=== PATIENT | female | born 1955 | race American Indian/Alaskan Native ===

== ENCOUNTER 2020-11-23 14:36 | Observation (INO) | payer MEDICARE ==
--- NOTE | 2020-11-23 16:11 | Event Note ---
ED Screening Note ED Screening Note: Patient is a 65-year-old female brought in by her daughter with complaints of a fall that occurred earlier today The daughter states that her father witnessed the fall and states that she had a syncopal episode She is complaining of right hip pain, right rib pain, low back pain The daughter states that she had a fall 2 weeks ago and was in another emergency department She states that beginning approximately a week ago she began to have auditory and visual hallucinations This initial assessment/diagnostic orders/clinical plan/treatment(s) is/are subject to change based on patients health status, clinical progression and re- assessment by fellow clinical providers in the ED. Further treatment and workup at subsequent clinical providers discretion. Patient/guardian urged not to elope from the ED as their condition may be serious if not clinically assessed and managed. Initial orders include: Labs, UA, EKG, CT, x-ray
--- NOTE | 2020-11-23 16:53 | XRay Report ---
RIGHT HIP AND PELVIS 2 VIEWS INDICATION: fall, right hip pain. COMPARISON: No relevant prior imaging study available. FINDINGS: No acute, displaced fracture or dislocation is seen. No significant degenerative changes at the hips. There is mild degenerative change at the left SI joint and at the pubic symphysis. IMPRESSION: 1. No acute findings. Signer Name: Harsh Michelle MD Signed: 11/23/2020 4:49 PM Workstation Name: [id number]
--- NOTE | 2020-11-23 17:00 | XRay Report ---
RIGHT RIBS 3 VIEWS INDICATION: Right rib pain after fall. COMPARISON: None available. FINDINGS: RIBS: No acute, displaced fracture or other acute abnormality. CHEST: No acute findings. No pneumothorax. ADDITIONAL FINDINGS: A catheter of uncertain significance is seen along the right upper quadrant. IMPRESSION: 1. No acute abnormality of the right ribs. Signer Name: Perez La MD Signed: 11/23/2020 4:56 PM Workstation Name: [id number]
[2020-11-23 17:09] LABS: Basophils % (Auto) 0.6 % (0.0-1.8); Eosinophils % (Auto) 0.2 % (0.0-4.3); Hematocrit 41.1 % (30.3-42.9); Hemoglobin 13.7 gm/dl (10.1-14.3); Lymphocytes # (Auto) 1.1 K/mm3 (1.2-5.4); Lymphocytes % (Auto) 26.4 % (13.4-35.0); Mean Corpuscular HGB Conc 33 % (30-34); Mean Corpuscular Volume 99 fl (79-97); Monocytes # (Auto) 0.3 K/mm3 (0.0-0.8); Monocytes % (Auto) 8.4 % (0.0-7.3); Platelet Count 232 K/mm3 (140-440); Red Blood Count 4.14 M/mm3 (3.65-5.03); Red Cell Distribution Width 13.4 % (13.2-15.2)
--- NOTE | 2020-11-23 17:28 | Cat Scan Report ---
NONENHANCED CT SCAN OF THE HEAD: INDICATION / CLINICAL INFORMATION: 65 years Female; syncope, visual/auditory hallucinations. TECHNIQUE: Routine CT head without contrast. All CT scans at this location are performed using CT dos e reduction for ALARA by means of automated exposure control. COMPARISON: CT scan from 01/29/2014 FINDINGS: BRAIN / INTRACRANIAL CONTENTS: No acute hemorrhage, mass effect, midline shift, hydrocephalus, or acu te, large territorial infarct. No chronic infarct or focal atrophy. Normal brain volume and ventricul ar/sulcal size for age. No significant white matter abnormality. CRANIOCERVICAL JUNCTION: No significant abnormality. ORBITS: No significant abnormality of visualized orbits. SINUSES / MASTOIDS: No significant abnormality of the visualized paranasal sinuses or mastoid air lauren ls. ADDITIONAL FINDINGS: None. IMPRESSION: No acute focal parenchymal lesion Signer Name: Ivelisse Peters MD Signed: 11/23/2020 5:23 PM Workstation Name: [id number]
[2020-11-23 17:34] LABS: Alanine Aminotransferase 12 units/L (7-56); Albumin 3.9 g/dL (3.9-5); BUN/Creatinine Ratio 16; Blood Urea Nitrogen 19 mg/dL (7-17); Calcium 8.8 mg/dL (8.4-10.2); Hemolysis Index 22
--- NOTE | 2020-11-23 17:51 | Cat Scan Report ---
CT lumbar spine wo con INDICATION / CLINICAL INFORMATION: 65 years Female; syncope, low back pain, hx of LP shunt. TECHNIQUE: Axial CT images of the lumbar spine were obtained. Sagittal and coronal reformatted images were prod uced. All CT scans at this location are performed using CT dose reduction for ALARA by means of autom ated exposure control. COMPARISON: None available. FINDINGS: POST-SURGICAL CHANGES: None. ALIGNMENT: No significant abnormality. VERTEBRAE: Minimally displaced transverse process fracture seen on the right at L2 and L4. Transverse process fracture seen on the right at L3 as well, with approximately 5 mm of displacement noted. There is mild loss of height anteriorly at L2, most likely on a chronic basis. Vertebral body heights are otherwise fairly well-maintained throughout. Diffuse osteopenia noted. Mild, multilevel facet hypertrophy is seen. INTERVERTEBRAL DISCS: Disc space narrowing and vacuum phenomenon seen at L4-5. Mild narrowing seen at L2-3 as well. At L2-3, there is moderate disc bulge with a broad-based posterocentral disc extrusion-disc material extends to the suprapedicular level of L3. Findings result in mild canal narrowing with some degree o f lateral recess narrowing bilaterally which may affect the L3 nerves. Mild foraminal narrowing seen bilaterally. At L3-4, there is mild to moderate disc bulge. This combined with ligamentum flavum hypertrophy resul ts in moderate canal narrowing and some degree of lateral recess narrowing, which may affect the L4 n erves. Mild foraminal narrowing noted bilaterally. L4-5, there is mild to moderate disc bulge and mild facet hypertrophy. Mild canal and lateral recess narrowing noted which may affect L5 nerves. At L5-S1, there is a left paracentral disc protrusion which is broad-based. No significant sequela. M oderate foraminal narrowing is seen on the right with encroachment upon the right L5 nerve. No imping ement. PARASPINAL SOFT TISSUES: No significant abnormality. ADDITIONAL FINDINGS: Tubing is seen in the subcutaneous soft tissues of the back, rightward of midlin e-please clinically correlate. Postoperative small bowel clips suggested. Please clinically correlate. IMPRESSION: 1. Posttraumatic changes as described above. 2. Degenerative changes of the lumbar spine identified as described above. Signer Name: Munir Sweet MD, III Signed: 11/23/2020 5:47 PM Workstation Name: [id number]
[2020-11-23 22:49] LABS: Amphetamine Screen,Urine PRESUMPTIVE NEGATIVE; Benzodiazepines Screen,Urine PRESUMPTIVE NEGATIVE; Cannabinoid Screen,Urine PRESUMPTIVE NEGATIVE; Cocaine Screen,Urine PRESUMPTIVE NEGATIVE; Methadone Screen,Urine PRESUMPTIVE NEGATIVE; Opiate Screen,Urine PRESUMPTIVE POSITIVE
--- NOTE | 2020-11-23 22:52 | Emergency Department Report ---
HPI - General Chief Complaint: Head Injury Time Seen by Provider: 11/23/20 16:06 - HPI HPI: This is a 65-year-old female presents to the emergency department with complaint of a fall this afternoon that caused subsequent pain to the low back, pelvis and bilateral hips. The patient's is currently at bedside and says that he woke up and found her on the floor. She appeared confused and had obviously fallen off of the couch. Unknown loss of consciousness. He also says that the patient has been experiencing both auditory and visual hallucinations and paranoia over the past 3 to 4 days. This has never happened previously and she does not have any psychiatric history. Patient appears to have some recent falls as he went to [facility] late last week for a different fall. says that there was no significant injury found other than "they said that she bruised her spine." The patient has a past medical history of asthma, arthritis, COPD, diabetes, hypertension, hypothyroidism, pseudotumor cerebri. The patient is oriented, AAO x3. She says that she has visual hallucinations when she thinks that there are people in the room and sees "shadows." She has difficulty explaining the auditory hallucinations. During my examination the patient told me "just let him () answer the phone because it keeps ringin g." There was no phone ringing at this time and the acknowledges that this is an example of what has been going on. ED Past Medical Hx - Past Medical History Hx Hypertension: Yes Hx Diabetes: Yes Hx Arthritis: Yes Hx Asthma: Yes Hx COPD: Yes Additional medical history: Osteoporosis-pt taking calcium & vitamin d supplement and Boniva. Hyperthyroidism, pseudotumor cerebrii - Surgical History Hx Appendectomy: Yes Hx Breast Surgery: Yes (Reduction) Additional Surgical History: Tonsillectomy, thyoidectomy, x 2, gastric bypass, skin removed on abdomen after gastric bypass, hysterectomy - Social History Smoking Status: Never Smoker Substance Use Type: None - Medications Home Medications: Home Medications Medication Instructions Recorded Confirmed Last Taken Type Cyclobenzaprine [Flexeril] 10 mg PO TID PRN #20 tablet 01/30/14 Unknown Rx oxyCODONE /ACETAMINOPHEN [Percocet 1 tab PO Q6HR PRN #20 tablet 01/30/14 Unknown Rx 5/325 mg] ED Review of Systems ROS: Stated complaint: SPINE INJURY, SEEING AND HEARING THINGS Other details as noted in HPI Comment: All other systems reviewed and negative Constitutional: denies: chills, fever Eyes: denies: eye pain, vision change ENT: denies: ear pain, throat pain Respiratory: denies: cough, shortness of breath Cardiovascular: denies: chest pain, palpitations Gastrointestinal: denies: abdominal pain, vomiting Genitourinary: denies: dysuria, discharge Musculoskeletal: back pain, arthralgia, myalgia Skin: denies: rash, lesions Neurological: other (dizziness). denies: headache Psychiatric: auditory hallucinations, visual hallucinations Physical Exam - Physical Exam Vital Signs: Vital Signs 11/23/20 11/23/20 11/23/20 15:04 18:10 21:45 Temperature 98.5 F 98.6 F 97.8 F Pulse Rate 63 67 74 Respiratory 20 19 Rate Blood Pressure 165/71 Blood Pressure 119/84 134/74 [Left] O2 Sat by Pulse 98 100 16 L Oximetry Physical Exam: GENERAL: The patient is well-developed well-nourished. HENT: Normocephalic. Atraumatic. Patient has moist mucous membranes. EYES: Extraocular motions are intact. No nystagmus. NECK: Supple. Trachea is midline. CHEST/LUNGS: Clear to auscultation. There is no respiratory distress noted. HEART/CARDIOVASCULAR: Regular. There is no tachycardia. There is no murmur. ABDOMEN: Abdomen is soft, nontender. Patient has normal bowel sounds. SKIN: Skin is warm and dry. NEURO: The patient is awake, alert, and cooperative. Patient is able to answer orientation questions but does display some mild confusion. Cranial nerves II through XII grossly intact. No facial asymmetry. No pronator drift or dysmetria. MUSCULOSKELETAL: There is no tenderness or deformity. There is no limitation range of motion. PSYCH: The patient does appear to be exhibiting some paranoia and delusions. BACK: There is both midline and bilateral lumbar tenderness to palpation. ED Course Vital Signs 11/23/20 11/23/20 11/23/20 15:04 18:10 21:45 Temperature 98.5 F 98.6 F 97.8 F Pulse Rate 63 67 74 Respiratory 20 19 Rate Blood Pressure 165/71 Blood Pressure 119/84 134/74 [Left] O2 Sat by Pulse 98 100 16 L Oximetry ED Medical Decision Making - Lab Data Result diagrams: 11/23/20 16:57 11/23/20 16:57 Lab Results 11/23/20 11/23/20 11/23/20 Range/Units 16:57 16:57 22:14 WBC 4.0 L (4.5-11.0) K/mm3 RBC 4.14 (3.65-5.03) M/mm3 Hgb 13.7 (10.1-14.3) gm/dl Hct 41.1 (30.3-42.9) % MCV 99 H (79-97) fl MCH 33 H (28-32) pg MCHC 33 (30-34) % RDW 13.4 (13.2-15.2) % Plt Count 232 (140-440) K/mm3 Lymph % (Auto) 26.4 (13.4-35.0) % [place] % (Auto) 8.4 H (0.0-7.3) % Eos % (Auto) 0.2 (0.0-4.3) % Baso % (Auto) 0.6 (0.0-1.8) % Lymph # (Auto) 1.1 L (1.2-5.4) K/mm3 [place] # (Auto) 0.3 (0.0-0.8) K/mm3 Eos # (Auto) 0.0 (0.0-0.4) K/mm3 Baso # (Auto) 0.0 (0.0-0.1) K/mm3 Seg Neutrophils % 64.4 (40.0-70.0) % Seg Neutrophils # 2.6 (1.8-7.7) K/mm3 Sodium 137 (137-145) mmol/L Potassium 4.0 (3.6-5.0) mmol/L Chloride 102.7 (98-107) mmol/L Carbon Dioxide 24 (22-30) mmol/L Anion Gap 14 mmol/L BUN 19 H (7-17) mg/dL Creatinine 1.2 (0.6-1.2) mg/dL Estimated GFR 55 ml/min BUN/Creatinine Ratio 16 % Glucose 117 H (65-100) mg/dL Calcium 8.8 (8.4-10.2) mg/dL Magnesium 2.10 (1.7-2.3) mg/dL Total Bilirubin 0.30 (0.1-1.2) mg/dL AST 19 (5-40) units/L ALT 12 (7-56) units/L Alkaline Phosphatase 67 (35-129) units/L Ammonia 13.0 L (25-60) umol/L Total Creatine Kinase 132 (30-135) units/L Troponin T < 0.010 (0.00-0.029) ng/mL Total Protein 6.8 (6.3-8.2) g/dL Albumin 3.9 (3.9-5) g/dL Albumin/Globulin Ratio 1.3 % TSH (0.270-4.200) mlU/mL Urine Color (Yellow) Urine Turbidity (Clear) Urine pH (5.0-7.0) Ur Specific [place] (1.003-1.030) Urine Protein (Negative) mg/dL Urine Glucose (UA) (Negative) mg/dL Urine Ketones (Negative) mg/dL Urine Blood (Negative) Urine Nitrite (Negative) Urine Bilirubin (Negative) Urine Urobilinogen (<2.0) mg/dL Ur Leukocyte Esterase (Negative) Urine WBC (Auto) (0.0-6.0) /HPF Urine RBC (Auto) (0.0-6.0) /HPF U Epithel Cells (Auto) (0-13.0) /HPF Urine Mucus /HPF Urine Opiates Screen Urine Methadone Screen Ur Barbiturates Screen Ur Phencyclidine Scrn Ur Amphetamines Screen U Benzodiazepines Scrn Urine Cocaine Screen U Marijuana (THC) Screen Drugs of Abuse Note Plasma/Serum Alcohol (0-0.07) % 11/23/20 11/23/20 11/23/20 Range/Units 22:14 22:14 22:21 WBC (4.5-11.0) K/mm3 RBC (3.65-5.03) M/mm3 Hgb (10.1-14.3) gm/dl Hct (30.3-42.9) % MCV (79-97) fl MCH (28-32) pg MCHC (30-34) % RDW (13.2-15.2) % Plt Count (140-440) K/mm3 Lymph % (Auto) (13.4-35.0) % [place] % (Auto) (0.0-7.3) % Eos % (Auto) (0.0-4.3) % Baso % (Auto) (0.0-1.8) % Lymph # (Auto) (1.2-5.4) K/mm3 [place] # (Auto) (0.0-0.8) K/mm3 Eos # (Auto) (0.0-0.4) K/mm3 Baso # (Auto) (0.0-0.1) K/mm3 Seg Neutrophils % (40.0-70.0) % Seg Neutrophils # (1.8-7.7) K/mm3 Sodium (137-145) mmol/L Potassium (3.6-5.0) mmol/L Chloride (98-107) mmol/L Carbon Dioxide (22-30) mmol/L Anion Gap mmol/L BUN (7-17) mg/dL Creatinine (0.6-1.2) mg/dL Estimated GFR ml/min BUN/Creatinine Ratio % Glucose (65-100) mg/dL Calcium (8.4-10.2) mg/dL Magnesium (1.7-2.3) mg/dL Total Bilirubin (0.1-1.2) mg/dL AST (5-40) units/L ALT (7-56) units/L Alkaline Phosphatase (35-129) units/L Ammonia (25-60) umol/L Total Creatine Kinase (30-135) units/L Troponin T (0.00-0.029) ng/mL Total Protein (6.3-8.2) g/dL Albumin (3.9-5) g/dL Albumin/Globulin Ratio % TSH 0.355 (0.270-4.200) mlU/mL Urine Color Yellow (Yellow) Urine Turbidity Slightly-cloudy (Clear) Urine pH 6.0 (5.0-7.0) Ur Specific [place] 1.021 (1.003-1.030) Urine Protein 30 mg/dl (Negative) mg/dL Urine Glucose (UA) Neg (Negative) mg/dL Urine Ketones 20 (Negative) mg/dL Urine Blood Neg (Negative) Urine Nitrite Neg (Negative) Urine Bilirubin Neg (Negative) Urine Urobilinogen 2.0 (<2.0) mg/dL Ur Leukocyte Esterase Tr (Negative) Urine WBC (Auto) 7.0 H (0.0-6.0) /HPF Urine RBC (Auto) 1.0 (0.0-6.0) /HPF U Epithel Cells (Auto) 1.0 (0-13.0) /HPF Urine Mucus Few /HPF Urine Opiates Screen Urine Methadone Screen Ur Barbiturates Screen Ur Phencyclidine Scrn Ur Amphetamines Screen U Benzodiazepines Scrn Urine Cocaine Screen U Marijuana (THC) Screen Drugs of Abuse Note Plasma/Serum Alcohol < 0.01 (0-0.07) % 11/23/20 Range/Units 22:21 WBC (4.5-11.0) K/mm3 RBC (3.65-5.03) M/mm3 Hgb (10.1-14.3) gm/dl Hct (30.3-42.9) % MCV (79-97) fl MCH (28-32) pg MCHC (30-34) % RDW (13.2-15.2) % Plt Count (140-440) K/mm3 Lymph % (Auto) (13.4-35.0) % [place] % (Auto) (0.0-7.3) % Eos % (Auto) (0.0-4.3) % Baso % (Auto) (0.0-1.8) % Lymph # (Auto) (1.2-5.4) K/mm3 [place] # (Auto) (0.0-0.8) K/mm3 Eos # (Auto) (0.0-0.4) K/mm3 Baso # (Auto) (0.0-0.1) K/mm3 Seg Neutrophils % (40.0-70.0) % Seg Neutrophils # (1.8-7.7) K/mm3 Sodium (137-145) mmol/L Potassium (3.6-5.0) mmol/L Chloride (98-107) mmol/L Carbon Dioxide (22-30) mmol/L Anion Gap mmol/L BUN (7-17) mg/dL Creatinine (0.6-1.2) mg/dL Estimated GFR ml/min BUN/Creatinine Ratio % Glucose (65-100) mg/dL Calcium (8.4-10.2) mg/dL Magnesium (1.7-2.3) mg/dL Total Bilirubin (0.1-1.2) mg/dL AST (5-40) units/L ALT (7-56) units/L Alkaline Phosphatase (35-129) units/L Ammonia (25-60) umol/L Total Creatine Kinase (30-135) units/L Troponin T (0.00-0.029) ng/mL Total Protein (6.3-8.2) g/dL Albumin (3.9-5) g/dL Albumin/Globulin Ratio % TSH (0.270-4.200) mlU/mL Urine Color (Yellow) Urine Turbidity (Clear) Urine pH (5.0-7.0) Ur Specific [place] (1.003-1.030) Urine Protein (Negative) mg/dL Urine Glucose (UA) (Negative) mg/dL Urine Ketones (Negative) mg/dL Urine Blood (Negative) Urine Nitrite (Negative) Urine Bilirubin (Negative) Urine Urobilinogen (<2.0) mg/dL Ur Leukocyte Esterase (Negative) Urine WBC (Auto) (0.0-6.0) /HPF Urine RBC (Auto) (0.0-6.0) /HPF U Epithel Cells (Auto) (0-13.0) /HPF Urine Mucus /HPF Urine Opiates Screen Presumptive positive Urine Methadone Screen Presumptive negative Ur Barbiturates Screen Presumptive negative Ur Phencyclidine Scrn Presumptive negative Ur Amphetamines Screen Presumptive negative U Benzodiazepines Scrn Presumptive negative Urine Cocaine Screen Presumptive negative U Marijuana (THC) Screen Presumptive negative Drugs of Abuse Note Disclamer Plasma/Serum Alcohol (0-0.07) % - EKG Data -: EKG Interpreted by Me EKG shows normal: sinus rhythm, axis, intervals, QRS complexes, ST-T waves Rate: normal - EKG Data When compared to previous EKG there are: previous EKG unavailable Interpretation: normal EKG - Radiology Data Radiology results: report reviewed, image reviewed interpreted by me: X-ray of the right hip does not show any fracture, dislocation, or any acute process. Chest x-ray does not show any acute process. There are no pleural effusions, obvious pneumonia and there is no pneumothorax. No significant cardiomegaly. No rib fractures or osseous abnormalities. NONENHANCED CT SCAN OF THE HEAD: INDICATION / CLINICAL INFORMATION: 65 years Female; syncope, visual/auditory hallucinations. TECHNIQUE: Routine CT head without contrast. All CT scans at this location are performed using CT dose reduction for ALARA by means of automated exposure control. COMPARISON: CT scan from 01/29/2014 FINDINGS: BRAIN / INTRACRANIAL CONTENTS: No acute hemorrhage, mass effect, midline shift, hydrocephalus, or acute, large territorial infarct. No chronic infarct or focal atrophy. Normal brain volume and ventricular/sulcal size for age. No significant white matter abnormality. CRANIOCERVICAL JUNCTION: No significant abnormality. ORBITS: No significant abnormality of visualized orbits. SINUSES / MASTOIDS: No significant abnormality of the visualized paranasal sinuses or mastoid air cells. ADDITIONAL FINDINGS: None. IMPRESSION: No acute focal parenchymal lesion CT lumbar spine wo con INDICATION / CLINICAL INFORMATION: 65 years Female; syncope, low back pain, hx of LP shunt. TECHNIQUE: Axial CT images of the lumbar spine were obtained. Sagittal and coronal reformatted images were produced. All CT scans at this location are performed using CT dose reduction for ALARA by means of automated exposure control. COMPARISON: None available. FINDINGS: POST- SURGICAL CHANGES: None. ALIGNMENT: No significant abnormality. VERTEBRAE: Minimally displaced transverse process fracture seen on the right at L2 and L4. Transverse process fracture seen on the right at L3 as well, with approximately 5 mm of displacement noted. There is mild loss of height anteriorly at L2, most likely on a chronic basis. Vertebral body heights are otherwise fairly well- maintained throughout. Diffuse osteopenia noted. Mild, multilevel facet hypertrophy is seen. INTERVERTEBRAL DISCS: Disc space narrowing and vacuum phenomenon seen at L4-5. Mild narrowing seen at L2-3 as well. At L2-3, there is moderate disc bulge with a broad-based posterocentral disc extrusion-disc material extends to the suprapedicular level of L3. Findings result in mild canal narrowing with some degree of lateral recess narrowing bilaterally which may affect the L3 nerves. Mild foraminal narrowing seen bilaterally. At L3-4, there is mild to moderate disc bulge. This combined with ligamentum flavum hypertrophy results in moderate canal narrowing and some degree of lateral recess narrowing, which may affect the L4 nerves. Mild foraminal narrowing noted bilaterally. L4-5, there is mild to moderate disc bulge and mild facet hypertrophy. Mild canal and lateral recess narrowing noted which may affect L5 nerves. At L5-S1, there is a left paracentral disc protrusion which is broad- based. No significant sequela. Moderate foraminal narrowing is seen on the right with encroachment upon the right L5 nerve. No impingement. PARASPINAL SOFT TISSUES: No significant abnormality. ADDITIONAL FINDINGS: Tubing is seen in the subcutaneous soft tissues of the back, rightward of midline-please clinically correlate. Postoperative small bowel clips suggested. Please clinically correlate. IMPRESSION: 1. Posttraumatic changes as described above. 2. Degenerative changes of the lumbar spine identified as described above. - Medical Decision Making This patient presents to the emergency department with 2 issues. First, the patient had a fall today in which she was seen on the ground by her and neither he nor she knew how she got from the couch to the floor. She had a complaint of some low back pain, right hip pain and a headache. The patient had a CT scan of the head without contrast that did not show any hemorrhage, large vessel occlusion, hydrocephalus, edema, or any other acute process. This is particularly important with the patient's history of pseudotumor cerebri. She had a CT scan of the lumbar spine that shows transverse process fractures on the right side L2-L4. Chest x-ray did not show any pneumonia, pleural effusions, rib fracture, or any acute process. X-ray of the right hip did not show any fracture, dislocation, or any acute process. On examination the patient does not have any focal or motor deficits and cranial nerves are intact. The patient also presents with the complaint of auditory and visual hallucinations over the past 3 to 4 days. Beyond that, the patient also dis plays some paranoia and delusions. I witnessed the patient suddenly demanding that her be able to answer the phone because it is consistently ringing. However, we were in room 5 and there was no phone going off, any sudden beeping or any other reason for the patient to blurt that out. Patient's says that this was an example of her recent confusion and hallucinations. Patient's labs are mostly unremarkable except for a very mild urinary tract infection. She will be started on Macrobid. The patient does not have any previous psychiatric history. With this sudden mental status change, as well as the multiple recurrent falls, the patient will be admitted to the hospital for further evaluation and treatment and was accepted for admission by the hospitalist, Dr. Rubio. Critical Care Time: No Critical care attestation.: If time is entered above; I have spent that time in minutes in the direct care of this critically ill patient, excluding procedure time. ED Disposition Clinical Impression: Recurrent falls, Multiple transverse process fractures, Hallucinations, Mild renal insufficiency UTI (urinary tract infection) Qualifiers: Urinary tract infection type: acute cystitis Hematuria presence: without hematuria Qualified Code(s): N30.00 - Acute cystitis without hematuria Disposition: OP ADMIT IP TO THIS HOSP Is pt being admited?: Yes Condition: Serious Referrals: BETTIE WOOD MD [Primary Care Provider] - 3-5 Days Time of Disposition: 00:07
[2020-11-23 23:10] LABS: Bilirubin,Urine NEG (Negative); Blood,Urine NEG (Negative); Color,Urine Yellow (Yellow); Mucus,Urine FEW /HPF
[2020-11-23] MEDS ORDERED: NITROFURANTOIN MONOHYD/M-CRYST 100 MG CAP PO ONE (23:20)
[2020-11-24] MEDS ORDERED: ACETAMINOPHEN 325 MG TAB PO PRN (00:20)
[2020-11-24] MEDS ORDERED: DEXTROSE 50% IN WATER (25GM) 50 ML SYRINGE IV PRN (00:20)
[2020-11-24] MEDS ORDERED: MORPHINE 2 MG/1 ML INJ IV PRN (00:20)
[2020-11-24] MEDS ORDERED: MAGNESIUM HYDROXIDE (MOM) ORAL LIQD UDC PO PRN (00:20)
[2020-11-24] MEDS ORDERED: ONDANSETRON 4 MG/2 ML INJ IV PRN (00:20)
--- NOTE | 2020-11-24 00:29 | History and Physical Report ---
History of Present Illness Date of examination: 11/24/20 Date of admission: 11/24/2020 Chief complaint: Recurrent Falls History of present illness: 65-year-old female presenting in the emergency room today with complaints of recurrent fall. She indicates she has had multiple falls today and has been having some low back pain and bilateral hip pain. Patient has significant past medical history of arthritis, asthma, diabetes mellitus, hypertension, hypothyroidism, COPD, pseudotumor cerebri. Family indicates that patient has been confused and has had auditory, visual hallucination and paranoia over the past 3 to 4 days. Patient denies any psychiatric illness. Patient has also had a recent fall for which she will was evaluated at [facility] about a week ago. She denies any significant injury at that time. There has been no history of chest pain or shortness of breath, no fever or chills, no headache, no neck pain, no nausea vomiting and no abdominal pain. Patient denies any hematuria or dysuria. Work-up in the emergency room today reveals Transverse process fracture seen on the right at L3 level as well with approximately 5 mm of displacement noted. All other work-up including CT scan of the head and chest x-ray have been unremarkable. Patient is being admitted with recurrent fall and hallucinations. Past History Past Medical History: arthritis, COPD, diabetes, hypertension, other (Ost eoporosis, hypothyroidism pseudotumor cerebri,) Past Surgical History: appendectomy, (X2), thyroidectomy, Other (Tonsillectomy, gastric bypass, breast reduction) Social history: no significant social history Family history: no significant family history Medications and Allergies Allergies Allergy/AdvReac Type Severity Reaction Status Date / Time aspirin Allergy Shortness Verified 11/23/20 15:06 of Breath meperidine HCl [From Demerol] Allergy Itching Verified 11/23/20 15:06 NSAIDS (Non-Steroidal Allergy Shortness Verified 11/23/20 15:06 Anti-Inflamma of Breath Cheese Allergy Shortness Uncoded 11/23/20 15:06 of Breath Home Medications Medication Instructions Recorded Confirmed Last Taken Type Cyclobenzaprine [Flexeril] 10 mg PO TID PRN #20 tablet 01/30/14 Unknown Rx oxyCODONE /ACETAMINOPHEN [Percocet 1 tab PO Q6HR PRN #20 tablet 01/30/14 Unknown Rx 5/325 mg] Active Meds: Active Medications Acetaminophen (Acetaminophen 325 Mg Tab) 650 mg PO Q4H PRN PRN Reason: Pain MILD(1-3)/Fever >100.5/MCLEOD Dextrose (Dextrose 50% In Water (25gm) 50 Ml Syringe) 50 ml IV Q30MIN PRN; Protocol PRN Reason: Hypoglycemia Sodium Chloride (Nacl 0.9% 1000 Ml) 1,000 mls @ 75 mls/hr IV DIRECT NARDA Insulin Human Lispro (Insulin Lispro 100 Unit/Ml) 0 unit SUB-Q ACHS NARDA; Protocol Magnesium Hydroxide (Magnesium Hydroxide (Mom) Oral Liqd Udc) 30 ml PO Q4H PRN PRN Reason: Constipation Morphine Sulfate (Morphine 2 Mg/1 Ml Inj) 2 mg IV Q4H PRN PRN Reason: Pain, Moderate (4-6) Ondansetron HCl (Ondansetron 4 Mg/2 Ml Inj) 4 mg IV Q8H PRN PRN Reason: Nausea And Vomiting Sodium Chloride (Sodium Chloride 0.9% 10 Ml Flush Syringe) 10 ml IV BID NARDA Sodium Chloride (Sodium Chloride 0.9% 10 Ml Flush Syringe) 10 ml IV PRN PRN PRN Reason: LINE FLUSH Review of Systems Constitutional: no fever, no chills, no malaise, no lethargy Cardiovascular: no chest pain, no palpitations Respiratory: no cough, no shortness of breath Gastrointestinal: no abdominal pain, no nausea, no vomiting, no diarrhea Genitourinary Female: no pelvic pain, no flank pain, no hematuria Musculoskeletal: no neck pain, no low back pain Integumentary: no rash, no pruritis Neurological: no headaches, no confusion Psychiatric: no anxiety, no depression Endocrine: no polyphagia, no polydipsia, no polyuria, no nocturia Exam - Constitutional Vitals: Temp Pulse Resp BP Pulse Ox 97.8 F 65 17 149/71 100 11/23/20 21:45 11/24/20 00:00 11/24/20 00:00 11/24/20 00:00 11/24/20 00:00 General appearance: Present: no acute distress, well-nourished - EENT Eyes: Present: PERRL, EOM intact. Absent: scleral icterus ENT: hearing intact, clear oral mucosa, dentition normal - Neck Neck: Present: supple, normal ROM - Respiratory Respiratory effort: normal Respiratory: bilateral: CTA - Cardiovascular Rhythm: regular Heart Sounds: Present: S1 & S2 - Extremities Extremities: no ischemia, pulses intact, pulses symmetrical, No edema, normal temperature, normal color, Full ROM Peripheral Pulses: within normal limits - Abdominal General gastrointestinal: Present: soft, non-tender, non-distended, normal bowel sounds. Absent: mass - Integumentary Integumentary: Present: clear, warm, dry. Absent: rash - Musculoskeletal Musculoskeletal: strength equal bilaterally - Psychiatric Psychiatric: appropriate mood/affect, intact judgment & insight, memory intact, cooperative - Neurologic Neurologic: CNII-XII intact, no focal deficits, moves all extremities HEART Score - HEART Score Troponin: Troponin T < 0.010 ng/mL (0.00-0.029) 11/23/20 16:57 Results - Labs CBC & Chem 7: 11/23/20 16:57 11/23/20 16:57 Labs: Abnormal lab results 11/23/20 11/23/20 11/23/20 Range/Units 16:57 16:57 22:14 WBC 4.0 L (4.5-11.0) K/mm3 MCV 99 H (79-97) fl MCH 33 H (28-32) pg [place] % (Auto) 8.4 H (0.0-7.3) % Lymph # (Auto) 1.1 L (1.2-5.4) K/mm3 BUN 19 H (7-17) mg/dL Glucose 117 H (65-100) mg/dL Ammonia 13.0 L (25-60) umol/L Urine WBC (Auto) (0.0-6.0) /HPF 11/23/20 Range/Units 22:21 WBC (4.5-11.0) K/mm3 MCV (79-97) fl MCH (28-32) pg [place] % (Auto) (0.0-7.3) % Lymph # (Auto) (1.2-5.4) K/mm3 BUN (7-17) mg/dL Glucose (65-100) mg/dL Ammonia (25-60) umol/L Urine WBC (Auto) 7.0 H (0.0-6.0) /HPF Assessment and Plan - Patient Problems (1) Recurrent falls Current Visit: Yes Status: Acute Plan to address problem: Etiology is unclear. We will schedule physical therapy consult for evaluation. (2) Hallucinations Current Visit: Yes Status: Acute Plan to address problem: Etiology unclear. Patient has no history of mental illness. We will place consult to mental health for evaluation. (3) Mild renal insufficiency Current Visit: Yes Status: Acute Plan to address problem: Patient will be placed on IV fluid. Will monitor BUN and creatinine. (4) DVT prophylaxis Current Visit: Yes Status: Acute Plan to address problem: Patient placed on subcutaneous heparin. (5) Full code status Current Visit: Yes Status: Acute Plan to address problem: Patient is a full code.
[2020-11-24] MEDS ORDERED: SODIUM CHLORIDE 0.9% 1000 ML 1,000 ML IV SCH (00:30)
--- NOTE | 2020-11-24 08:25 | Event Note ---
Date: 11/24/20 Patient seen and examined, resting comfortable, she could not articulate clearly the mechanism of fall. Will start on empiric abx for mild UTI noted, also will obtain ANITHA eval, PT/OT and outpatient event monitoring with cardiology.
[2020-11-24] MEDS: INSULIN LISPRO 100 UNIT/ML SUB-Q SCH ×3 (08:42→17:18)
[2020-11-24] MEDS: HEPARIN 5,000 UNIT/1 ML VIAL SUB-Q SCH ×3 (09:14→21:49)
--- NOTE | 2020-11-24 09:16 | Consultation ---
History of Present Illness Consult date: 11/24/20 Reason for Consult: recurrent fall and hallucination History of present illness: Recurrent Falls History of present illness: 65-year-old female presenting in the emergency room today with complaints of recurrent fall. She indicates she has had multiple falls today and has been having some low back pain and bilateral hip pain. Patient has significant past medical history of arthritis, asthma, diabetes mellitus, hypertension, hypothyroidism, COPD, pseudotumor cerebri s/p shunt placement 20 years ago . Family indicates that patient has been confused and has had auditory, visual hallucination and paranoia over the past 3 to 4 days. Patient denies any psychiatric illness. Patient has also had a recent fall for which she will was evaluated at [facility] about a week ago. She denies any significant injury at that time. According to pt. she had a mom with hx of schizophrenia and is on medication she is evaluated today by psychiatry started on welbutrin 150 mg bid and Abilify According to her for years she is on Cymbalta 60 mg bid According to her fall happen while she is on commod denied dizziness and after LOC she will be confused disoriented had episodes of tongue bitting as well as a t time associted Incontince , she denied Hx of seizure she is on Morphine 30 mg bid X 20 years started after her shunt -- she used to get sever headache now haedache is occasional , have not seen NS in over 20 years. Work-up in the emergency room today reveals Transverse process fracture seen on the right at L3 level as well with approximately 5 mm of displacement noted. All other work-up including CT scan of the head and chest x-ray have been unremarkable. Patient is being admitted with recurrent fall and hallucinations. Past History Past Medical History: arthritis, COPD, diabetes, hypertension, other (Osteoporosis, hypothyroidism pseudotumor cerebri,) Past Surgical History: appendectomy, (X2), thyroidectomy, Other (Tonsillectomy, gastric bypass, breast reduction) shunt placement Social history: no significant social history Family history: no significant family history Review of Systems Constitutional: no fever, no chills, no malaise, no lethargy Cardiovascular: no chest pain, no palpitations Respiratory: no cough, no shortness of breath Gastrointestinal: no abdominal pain, no nausea, no vomiting, no diarrhea Genitourinary Female: no pelvic pain, no flank pain, no hematuria Musculoskeletal: no neck pain, no low back pain Integumentary: no rash, no pruritis Neurological: no headaches, no confusion Psychiatric: no anxiety, no depression Endocrine: no polyphagia, no polydipsia, no polyuria, no nocturia Past History Past Medical History: arthritis, COPD, diabetes, hypertension, other (Osteoporosis, hypothyroidism pseudotumor cerebri,) Past Surgical History: appendectomy, (X2), thyroidectomy, Other (To nsillectomy, gastric bypass, breast reduction) Social history: no significant social history Family history: no significant family history Medications and Allergies Allergies Allergy/AdvReac Type Severity Reaction Status Date / Time aspirin Allergy Shortness Verified 11/23/20 15:06 of Breath meperidine HCl [From Demerol] Allergy Itching Verified 11/23/20 15:06 NSAIDS (Non-Steroidal Allergy Shortness Verified 11/23/20 15:06 Anti-Inflamma of Breath Cheese Allergy Shortness Uncoded 11/23/20 15:06 of Breath Home Medications Medication Instructions Recorded Confirmed Last Taken Type Cyclobenzaprine [Flexeril] 10 mg PO TID PRN #20 tablet 01/30/14 Unknown Rx oxyCODONE /ACETAMINOPHEN [Percocet 1 tab PO Q6HR PRN #20 tablet 01/30/14 Unknown Rx 5/325 mg] Active Meds: Active Medications Acetaminophen (Acetaminophen 325 Mg Tab) 650 mg PO Q4H PRN PRN Reason: Pain MILD(1-3)/Fever >100.5/MCLEOD Dextrose (Dextrose 50% In Water (25gm) 50 Ml Syringe) 50 ml IV Q30MIN PRN; Protocol PRN Reason: Hypoglycemia Heparin Sodium (Porcine) (Heparin 5,000 Unit/1 Ml Vial) 5,000 unit SUB-Q Q8HR NARDA Sodium Chloride (Nacl 0.9% 1000 Ml) 1,000 mls @ 75 mls/hr IV DIRECT NARDA Last Admin: 11/24/20 03:53 Dose: 75 mls/hr Documented by: Insulin Human Lispro (Insulin Lispro 100 Unit/Ml) 0 unit SUB-Q ACHS NARDA; P rotocol Last Admin: 11/24/20 08:42 Dose: Not Given Documented by: Magnesium Hydroxide (Magnesium Hydroxide (Mom) Oral Liqd Udc) 30 ml PO Q4H PRN PRN Reason: Constipation Morphine Sulfate (Morphine 2 Mg/1 Ml Inj) 2 mg IV Q4H PRN PRN Reason: Pain, Moderate (4-6) Ondansetron HCl (Ondansetron 4 Mg/2 Ml Inj) 4 mg IV Q8H PRN PRN Reason: Nausea And Vomiting Sodium Chloride (Sodium Chloride 0.9% 10 Ml Flush Syringe) 10 ml IV BID NARDA Sodium Chloride (Sodium Chloride 0.9% 10 Ml Flush Syringe) 10 ml IV PRN PRN PRN Reason: LINE FLUSH Physical Examination - Vital Signs Vital Signs: Vital Signs Temp Pulse Resp BP Pulse Ox 98.5 F 63 20 165/71 98 11/23/20 15:04 11/23/20 15:04 11/23/20 15:04 11/23/20 15:04 11/23/20 15:04 - Constitutional General appearance: uncomfortable - EENT EENT: Present: PERRL, mucous membranes moist - Respiratory Respiratory: Present: chest non-tender, lungs clear - Cardiovascular Cardiovascular: Present: normal S1, normal S2 Extremities: Present: no peripheral edema bilatateraly - Gastrointestinal Gastrointestinal: Present: normoactive bowel sounds - Integumentary Integumentary: Present: normal - Neurologic Cranial nerve examination: PERRL, EOMI, face symmetric, tongue midline, intact Speech examination: intact Sensorimotor examination: intact Detailed motor examination: grossly full strength in Detailed sensory examination: intact - Psychiatric Psychiatric: Present: depressed Results - Laboratory Findings CBC and BMP: 11/23/20 16:57 11/23/20 16:57 Abnormal Lab Findings: Abnormal Labs 11/23/20 11/23/20 11/23/20 16:57 16:57 22:14 WBC 4.0 L MCV 99 H MCH 33 H [place] % (Auto) 8.4 H Lymph # (Auto) 1.1 L BUN 19 H Glucose 117 H Ammonia 13.0 L Urine WBC (Auto) 11/23/20 22:21 WBC MCV MCH [place] % (Auto) Lymph # (Auto) BUN Glucose Ammonia Urine WBC (Auto) 7.0 H Assessment and Plan (1) Recurrent falls - happen at time in sitting and or standing with no associated aura ,she d escribes tongue bitting at time and or urinarry incontince-- with assocaited confusion after the fall ? seizure can not be excluded -Ct brain is unremarkable -Suggest MRI brain with Qd if possible -EEG -check for orthostatic changes -Cardiac monitoring -Consider STOP welbutrin due to side effect of aggravating seizure. (2) Hallucinations -Patient has no history of mental illness. - Evaluated by psychiatry today (3) Mild renal insufficiency -Patient will be placed on IV fluid. (4) DVT prophylaxis -Patient placed on subcutaneous heparin. (5) Full code status Patient is a full code. Will follow along
--- NOTE | 2020-11-24 10:37 | Consultation ---
History of Present Illness - Reason for Consult Consult date: 11/24/20 Reason for consult: depression - History of Present Psychiatric Illness Per ER Note: This is a 65-year-old female presents to the emergency department with complaint of a fall this afternoon that caused subsequent pain to the low back, pelvis and bilateral hips. The patient's is currently at bedside and says that he woke up and found her on the floor. She appeared confused and had obviously fallen off of the couch. Unknown loss of consciousness. He also says that the patient has been experiencing both auditory and visual hallucinations and paranoia over the past 3 to 4 days. This has never happened previously and she does not have any psychiatric history. Patient appears to have some recent falls as he went to [facility] late last week for a different fall. says that there was no significant injury found other than "they said that she bruised her spine." The patient has a past medical history of asthma, arthritis, COPD, diabetes, hypertension, hypothyroidism, pseudotumor cerebri. The patient is oriented, AAO x3. She says that she has visual hallucinations when she thinks that there are people in the room and sees "shadows." She has difficulty explaining the auditory hallucinations. During my examination the patient told me "just let him () answer the phone because it keeps ringing." There was no phone ringing at this time and the acknowledges that this is an example of what has been going on. During my assessment of 64 y/o Ingris Sebastian, she is lying down. She is visibly upset. She is crying and has her faced covered with her hand. She makes no eye contact at all. The patient says she's doing doing well because no one will believe her. She says she is hearing voices and seeing shadows. She says she can't describe what the voices are saying. She says "If I do nobody will understand." The patient says "I just don't want to live anymore."She says she never sleeps, "and haven't in awhile." She says she has a history of depression and anxiety and takes cymabalta and wellbutrin 150mg twice daily. She denies any illicit drug use, alcohol or nicotine. She says "I came here to get help and nobody believes me." PAST PSYCHIATRIC HISTORY Diagnoses: anxiety and depression Suicide attempts or Self-harm behavior: Denies Prior psychiatric hospitalizations: Denies Substance Abuse history: Denies Previous psychiatric medications tried: wellbutrin, cymbalta Outpatient treatment: none reported PAST MEDICAL HISTORY: COPD, DM, HTN, Asthma, Arthritis Family Psychiatric History: None reported or documented SOCIAL HISTORY Marital Status: Living Arrangements: spouse Employment Status: Disabled Access to guns/weapons: none reported Education: high school History of Abuse: Denies Legal History: Denies REVIEW OF SYSTEMS Constitutional: Negative for weight loss ENT: Negative for stridor Respiratory: Negative for cough or hemoptysis All other systems reviewed and are negative MENTAL STATUS EXAMINATION General Appearance and Behavior: Age appropriate, good hygiene, wearing appropriate clothes, poor eye contact Cooperation: Participating/engaged, but Guarded Psychomotor Behavior: Psychomotor normal Mood: depressed Affect and affective range: tearful Thought Process: illogical Thought Content: hopelessness, hallucinations Speech: Normal rate, volume and rhythm Intellectual Functioning: Average Suicidal Ideation: Yes Homicidal Ideation: Denies HI Hallucinations: A/V Delusions: Paranoid Impulse Control: Impaired Insight and Judgment: Limited insight and judgment Memory: Normal Attention: Normal Orientation: Alert, oriented Diagnoses Major Depressive Disorder, Severe, with Psychotic Features Treatment Plan Wellbutrin 150mg po BID Abilify 5mg po daily Mirtazepine 7.5mg po qhs Risks, benefits and alternatives of medications discussed with the patient, questions answered and consent obtained from patient. PSYCHOTHERAPY: Supportive psychotherapy provided MEDICAL: Per primary team DELIRIUM PRECAUTIONS: Please re-orient patient frequently, keep lights on during the day, and minimize benzodiazepines and opiates as these medications could worsen patient's confusion. STRE[facility] [employer]PA[employer] HELPER: DISPOSITION: Recommend acute inpatient psychiatric hospitalization at this time. Case discussed with Dr. Smith who agrees with current disposition LEGAL STATUS: 1013 FOLLOW-UP: Will follow Thank you for the consult. Please contact with any questions and/or concerns. Medications and Allergies Allergies Allergy/AdvReac Type Severity Reaction Status Date / Time aspirin Allergy Shortness Verified 11/23/20 15:06 of Breath meperidine HCl [From Demerol] Allergy Itching Verified 11/23/20 15:06 NSAIDS (Non-Steroidal Allergy Shortness Verified 11/23/20 15:06 Anti-Inflamma of Breath Cheese Allergy Shortness Uncoded 04/27/21 15:06 of Breath Home Medications Medication Instructions Recorded Confirmed Last Taken Type Cyclobenzaprine [Flexeril] 10 mg PO TID PRN #20 tablet 01/30/14 Unknown Rx oxyCODONE /ACETAMINOPHEN [Percocet 1 tab PO Q6HR PRN #20 tablet 01/30/14 Unknown Rx 5/325 mg] Active Meds: Active Medications Acetaminophen (Acetaminophen 325 Mg Tab) 650 mg PO Q4H PRN PRN Reason: Pain MILD(1-3)/Fever >100.5/MCLEOD Dextrose (Dextrose 50% In Water (25gm) 50 Ml Syringe) 50 ml IV Q30MIN PRN; Protocol PRN Reason: Hypoglycemia Heparin Sodium (Porcine) (Heparin 5,000 Unit/1 Ml Vial) 5,000 unit SUB-Q Q8HR NARDA Last Admin: 11/24/20 09:14 Dose: 5,000 unit Documented by: Sodium Chloride (Nacl 0.9% 1000 Ml) 1,000 mls @ 75 mls/hr IV DIRECT NARDA Last Admin: 11/24/20 03:53 Dose: 75 mls/hr Documented by: Insulin Human Lispro (Insulin Lispro 100 Unit/Ml) 0 unit SUB-Q ACHS NARDA; Protocol Last Admin: 11/24/20 08:42 Dose: Not Given Documented by: Magnesium Hydroxide (Magnesium Hydroxide (Mom) Oral Liqd Udc) 30 ml PO Q4H PRN PRN Reason: Constipation Morphine Sulfate (Morphine 2 Mg/1 Ml Inj) 2 mg IV Q4H PRN PRN Reason: Pain, Moderate (4-6) Ondansetron HCl (Ondansetron 4 Mg/2 Ml Inj) 4 mg IV Q8H PRN PRN Reason: Nausea And Vomiting Sodium Chloride (Sodium Chloride 0.9% 10 Ml Flush Syringe) 10 ml IV BID NARDA Last Admin: 11/24/20 09:14 Dose: Not Given Documented by: Sodium Chloride (Sodium Chloride 0.9% 10 Ml Flush Syringe) 10 ml IV PRN PRN PRN Reason: LINE FLUSH Mental Status Exam - Vital signs Last Vital Signs Temp 98.1 F 11/24/20 07:09 Pulse 77 11/24/20 07:09 Resp 18 11/24/20 07:09 BP 117/61 11/24/20 07:09 Pulse Ox 96 11/24/20 07:09 Results Result Diagrams: 11/23/20 16:57 11/23/20 16:57 Abnormal lab results 11/23/20 11/23/20 11/23/20 Range/Units 16:57 16:57 22:14 WBC 4.0 L (4.5-11.0) K/mm3 MCV 99 H (79-97) fl MCH 33 H (28-32) pg [place] % (Auto) 8.4 H (0.0-7.3) % Lymph # (Auto) 1.1 L (1.2-5.4) K/mm3 BUN 19 H (7-17) mg/dL Glucose 117 H (65-100) mg/dL Ammonia 13.0 L (25-60) umol/L Urine WBC (Auto) (0.0-6.0) /HPF 11/23/20 Range/Units 22:21 WBC (4.5-11.0) K/mm3 MCV (79-97) fl MCH (28-32) pg [place] % (Auto) (0.0-7.3) % Lymph # (Auto) (1.2-5.4) K/mm3 BUN (7-17) mg/dL Glucose (65-100) mg/dL Ammonia (25-60) umol/L Urine WBC (Auto) 7.0 H (0.0-6.0) /HPF All other labs normal.
[2020-11-24] MEDS: buPROPion 75 MG TAB PO SCH (16:58)
[2020-11-24] MEDS: ARIPiprazole 5 MG TAB PO SCH (16:58)
--- NOTE | 2020-11-24 17:29 | Consultation ---
History of Present Illness Consult date: 11/24/20 Requesting physician: SOHAIL VILLA Reason for Consult: spine fractures Chief complaint: Ingris Sebastian is a 65 y/o Female that was admitted to [facility] for evaluation of acute back pain. She has had multiple falls over the past few months, which have contributed to her severe low back pain. CT scan was performed in the ER, which revealed multiple transverse process fractures from L2-4. There is evidence of lumbar intrathecal catheter, which presents a lumbar peritoneal shunt she had placed for pseudotumor cerebri. Presently, she denies significant pain. She endorses chronic, ongoing right sided pain that radiates down her leg. This pain has been present for many years and remains unchanged. She denies weakness, numbness, or loss of bowel/bladder function. Past History Past Medical History: arthritis, COPD, diabetes, hypertension, other (Osteoporosis, hypothyroidism pseudotumor cerebri,) Past Surgical History: appendectomy, (X2), thyroidectomy, Other (Tonsillectomy, gastric bypass, breast reduction) Social history: no significant social history Family history: no significant family history Medications and Allergies Allergies Allergy/AdvReac Type Severity Reaction Status Date / Time aspirin Allergy Shortness Verified 11/23/20 15:06 of Breath meperidine HCl [From Demerol] Allergy Itching Verified 11/23/20 15:06 NSAIDS (Non-Steroidal Allergy Shortness Verified 11/23/20 15:06 Anti-Inflamma of Breath Cheese Allergy Shortness Uncoded 11/23/20 15:06 of Breath Home Medications Medication Instructions Recorded Confirmed Last Taken Type Cyclobenzaprine [Flexeril] 10 mg PO TID PRN #20 tablet 01/30/14 Unknown Rx oxyCODONE /ACETAMINOPHEN [Percocet 1 tab PO Q6HR PRN #20 tablet 01/30/14 Unknown Rx 5/325 mg] Active Meds: Active Medications Acetaminophen (Acetaminophen 325 Mg Tab) 650 mg PO Q4H PRN PRN Reason: Pain MILD(1-3)/Fever >100.5/MCLEOD Aripiprazole (Aripiprazole 5 Mg Tab) 5 mg PO QDAY [facility] Last Admin: 11/24/20 16:58 Dose: 5 mg Documented by: Bupropion HCl (Bupropion 75 Mg Tab) 150 mg PO BID [facility] Last Admin: 11/24/20 16:58 Dose: Not Given Documented by: Dextrose (Dextrose 50% In Water (25gm) 50 Ml Syringe) 50 ml IV Q30MIN PRN; Protocol PRN Reason: Hypoglycemia Heparin Sodium (Porcine) (Heparin 5,000 Unit/1 Ml Vial) 5,000 unit SUB-Q Q8HR [facility] Last Admin: 11/24/20 16:58 Dose: 5,000 unit Documented by: Sodium Chloride (Nacl 0.9% 1000 Ml) 1,000 mls @ 75 mls/hr IV DIRECT [facility] Last Admin: 11/24/20 03:53 Dose: 75 mls/hr Documented by: Insulin Human Lispro (Insulin Lispro 100 Unit/Ml) 0 unit SUB-Q ACHS NARDA; Protocol Last Admin: 11/24/20 17:18 Dose: Not Given Documented by: Magnesium Hydroxide (Magnesium Hydroxide (Mom) Oral Liqd Udc) 30 ml PO Q4H PRN PRN Reason: Constipation Mirtazapine (Mirtazapine 15 Mg Tab) 7.5 mg PO QHS NARDA Morphine Sulfate (Morphine 2 Mg/1 Ml Inj) 2 mg IV Q4H PRN PRN Reason: Pain, Moderate (4-6) Ondansetron HCl (Ondansetron 4 Mg/2 Ml Inj) 4 mg IV Q8H PRN PRN Reason: Nausea And Vomiting Sodium Chloride (Sodium Chloride 0.9% 10 Ml Flush Syringe) 10 ml IV BID [facility] Last Admin: 11/24/20 09:14 Dose: Not Given Documented by: Sodium Chloride (Sodium Chloride 0.9% 10 Ml Flush Syringe) 10 ml IV PRN PRN PRN Reason: LINE FLUSH Review of Systems All systems: negative (what is specified in HPI) Physical Examination - Vital Signs Vital Signs: Vital Signs Temp Pulse Resp BP Pulse Ox 98.5 F 63 20 165/71 98 11/23/20 15:04 11/23/20 15:04 11/23/20 15:04 11/23/20 15:04 11/23/20 15:04 - Physical Exam Narrative exam: seen and examined at bedside no acute distress NC/AT RRR breathing non-labored abdomen soft no cyanosis or clubbing A&Ox3 CNII-XII intact motor strength full sensation intact reflexes +2 SLR (-) b/l Results - Laboratory Findings CBC and BMP: 11/23/20 16:57 11/23/20 16:57 Abnormal Lab Findings: Abnormal Labs 11/23/20 11/23/20 11/23/20 16:57 16:57 22:14 WBC 4.0 L MCV 99 H MCH 33 H [place] % (Auto) 8.4 H Lymph # (Auto) 1.1 L BUN 19 H Glucose 117 H POC Glucose Ammonia 13.0 L Urine WBC (Auto) 11/23/20 11/24/20 22:21 16:13 WBC MCV MCH [place] % (Auto) Lymph # (Auto) BUN Glucose POC Glucose 208 H Ammonia Urine WBC (Auto) 7.0 H Assessment and Plan Ingris Sebastian is a 65y/o F w/ R L2-4 TP fractures -may equip with a corset for comfort -recommend MRI T/L spine (may be done as an outpatient) -pt may discharge from my standpoint when cleared by primary team, I will arrange for outpatient follow up -please notify if questions
[2020-11-24] MEDS: MIRTAZAPINE 15 MG TAB PO SCH (21:46)
[2020-11-25] MEDS: buPROPion 75 MG TAB PO SCH ×3 (02:26→21:42)
[2020-11-25] MEDS: INSULIN LISPRO 100 UNIT/ML SUB-Q SCH ×4 (02:26→18:00)
[2020-11-25] MEDS: HEPARIN 5,000 UNIT/1 ML VIAL SUB-Q SCH ×3 (06:11→21:43)
[2020-11-25 07:22] LABS: Basophils % (Auto) 1.3 % (0.0-1.8); Eosinophils % (Auto) 0.9 % (0.0-4.3); Hematocrit 40.3 % (30.3-42.9); Hemoglobin 13.2 gm/dl (10.1-14.3); Lymphocytes # (Auto) 1.5 K/mm3 (1.2-5.4); Lymphocytes % (Auto) 46.1 % (13.4-35.0); Mean Corpuscular HGB Conc 33 % (30-34); Mean Corpuscular Volume 99 fl (79-97); Monocytes # (Auto) 0.3 K/mm3 (0.0-0.8); Platelet Count 219 K/mm3 (140-440); Red Cell Distribution Width 13.1 % (13.2-15.2)
[2020-11-25 08:35] LABS: BUN/Creatinine Ratio 14; Blood Urea Nitrogen 13 mg/dL (7-17); Calcium 8.8 mg/dL (8.4-10.2); Hemolysis Index 5
--- NOTE | 2020-11-25 09:33 | Discharge Summary ---
Providers - Providers Date of Admission: 11/24/20 00:09 Attending physician: SOHAIL VILLA MD 11/24/20 00:20 Consult to Physician [CONS] Routine Comment: Consulting Provider: BLOSSOM HOLLIDAY Physician Instructions: Reason For Exam: Recurrent Falls 11/24/20 00:22 Consult to Dietitian/Nutrition [CONS] Routine Physician Instructions: Reason For Exam: Reason for Consult: Diet education 11/24/20 05:35 Consult to Mental Health [CONS] Routine Reason For Exam: Auditory, visual hallucination. Please evaluate 11/24/20 08:11 Consult to Physician [CONS] Routine Comment: Consulting Provider: SONAM LEE II Physician Instructions: Reason For Exam: L3 non displaced fracture 11/24/20 08:22 Occupational Therapy Evaluate and Treat [CONS] Routine Comment: Reason For Exam: debility Physical Therapy Evaluation and Treat [CONS] Routine Comment: Reason For Exam: debility 11/24/20 08:35 Consult to Physician [CONS] Routine Comment: Consulting Provider: GIANNA COOK Physician Instructions: Reason For Exam: hallucination Primary care physician: BETTIE WOOD MD Hospitalization Reason for admission: fall Condition: Serious Hospital course: 65-year-old female presenting in the emergency room today with complaints of recurrent fall. She indicates she has had multiple falls today and has been hav ing some low back pain and bilateral hip pain. Patient has significant past medical history of arthritis, asthma, diabetes mellitus, hypertension, hypothyroidism, COPD, pseudotumor cerebri. Family indicates that patient has been confused and has had auditory, visual hallucination and paranoia over the past 3 to 4 days. Patient denies any psychiatric illness. Patient has also had a recent fall for which she will was evaluated at [facility] about a week ago. She denies any significant injury at that time. There has been no history of chest pain or shortness of breath, no fever or chills, no headache, no neck pain, no nausea vomiting and no abdominal pain. Patient denies any hematuria or dysuria. Work-up in the emergency room today reveals Transverse process fracture seen on the right at L3 level as well with approximately 5 mm of displacement noted. All other work-up including CT scan of the head and chest x-ray have been unremarkable. Patient is being admitted with recurrent fall and hallucinations. per spouse patient has been having some hallucinations, wants a psych eval, she had one about 7-8 years ago and was placed on medications but he is not sure which one as it was a short process. She per him speaks to people that are not present. will monitor Nuero checks q2h She has a history of Migraines Also had a mole taken out of the forehead. Date: 11/24/20 Patient seen and examined, resting comfortable, she could not articulate clearly the mechanism of fall. Will start on empiric abx for mild UTI noted, also will obtain ANITHA eval, PT/OT and outpatient event monitoring with cardiology. PER NEUROLOGY: Consider STOP welbutrin due to side effect of aggravating seizure. -- Will defer to PSYCH Per Neurosurgery Ingris Wood is a 65y/o F w/ R L2-4 TP fractures -may equip with a corset for comfort -recommend MRI T/L spine (may be done as an outpatient) -pt may discharge from my standpoint when cleared by primary team, I will arrange for outpatient follow up -please notify if questions Major Depressive Disorder, Severe, with Psychotic Features Visual Hallucinations Recurrent falls COPD Hypokalemia MYAH with vasomotor nephropathy Leukopenia Disposition: DC/TX-65 PSY HOSP/PSY UNIT Final Discharge Diagnosis (Prints w/discharge instructions): Major Dispressive Disorder Time spent for discharge: 35 MINS Core Measure Documentation - Palliative Care Palliative Care/ Comfort Measures: Not Applicable - Core Measures Any of the following diagnoses?: none Exam - Physical Exam Narrative exam: VITAL SIGNS: Reviewed. GENERAL: The patient appears normally developed, cachectic vital signs as documented. HEAD: No signs of head trauma. Right frontal head excoriation noted EYES: Pupils are equal. Extraocular motions intact. EARS: Hearing grossly intact. MOUTH: Oropharynx is normal. NECK: No adenopathy, no JVD. CHEST: Chest with clear breath sounds bilaterally. No wheezes, rales, or rhonchi. CARDIAC: Regular rate and rhythm. S1 and S2, without murmurs, gallops, or rubs. VASCULAR: No Edema. Peripheral pulses normal and equal in all extremities. ABDOMEN: Soft, non tender and non distended. No rebound or guarding, and no masses palpated. Bowel Sounds normal. MUSCULOSKELETAL: Good range of motion of all major joints. Extremities without clubbing, cyanosis or edema. NEUROLOGIC EXAM: Alert and oriented x 3 No focal sensory or strength deficits. Speech normal. Follows commands. PSYCHIATRIC: Mood normal. SKIN: detail exam as documented in skin assessment - Constitutional Vitals: Temp Pulse Resp BP Pulse Ox 98.4 F 78 18 142/63 95 11/25/20 07:15 11/25/20 07:15 11/25/20 07:15 11/25/20 07:15 11/25/20 07:15 Plan Activity: advance as tolerated, fall precautions Diet: low fat Special Instructions: record daily weights, record daily BP diary, physical therapy, occupational therapy Plan of Treatment: MRI WITH QD of the brain out patient MRI T/L spine FOLLOW UPS PER PSYCH TEAM Follow up with: BETTIE WOOD MD [Primary Care Provider] - 3-5 Days
[2020-11-25] MEDS: ARIPiprazole 5 MG TAB PO SCH (09:38)
[2020-11-25] MEDS ORDERED: POTASSIUM CHLORIDE ER 20 MEQ TAB PO SCH (10:00)
--- NOTE | 2020-11-25 10:02 | Progress Note ---
Subjective - Reason for Consult Consult date: 11/25/20 Reason for consult: hallucinations/SI - Chief Complaint Chief complaint: Per sitter caring for the patient, states the patient has been very quiet and to herself. The patient was seen today. A sitter is at bedside. She keeps her back to me. She makes poor eye contact. She is avoidant. She appears withdrawn. She says she feels "okay." The patient verbalizes hallucinations but would not tell me what they were. She says "I can't talk about it." When asked about hallucinations, she says "I don't care to be here." REVIEW OF SYSTEMS Constitutional: Negative for weight loss ENT: Negative for stridor Respiratory: Negative for cough or hemoptysis All other systems reviewed and are negative MENTAL STATUS EXAMINATION General Appearance and Behavior: Age appropriate, good hygiene, wearing appropriate clothes, poor eye contact Cooperation: Participating/engaged, but Guarded Psychomotor Behavior: Psychomotor normal Mood: depressed Affect and affective range: tearful Thought Process: illogical Thought Content: hopelessness, hallucinations Speech: Normal rate, volume and rhythm Intellectual Functioning: Average Suicidal Ideation: Yes Homicidal Ideation: Denies HI Hallucinations: A/V Delusions: Paranoid Impulse Control: Impaired Insight and Judgment: Limited insight and judgment Memory: Normal Attention: Normal Orientation: Alert, oriented Diagnoses Major Depressive Disorder, Severe, with Psychotic Features Treatment Plan Continue Wellbutrin 150mg po BID Increased Abilify 10mg po daily Continue Mirtazepine 7.5mg po qhs Risks, benefits and alternatives of medications discussed with the patient, questions answered and consent obtained from patient. PSYCHOTHERAPY: Supportive psychotherapy provided MEDICAL: Per primary team DELIRIUM PRECAUTIONS: Please re-orient patient frequently, keep lights on during the day, and minimize benzodiazepines and opiates as these medications could worsen patient's confusion. PHYSICIAN NON INVASIVE CARDIOLOGIST: DISPOSITION: Recommend acute inpatient psychiatric hospitalization at this time. Case discussed with Dr. Smith who agrees with current disposition LEGAL STATUS: 1013 FOLLOW-UP: Will follow Thank you for the consult. Please contact with any questions and/or concerns. Mental Status Exam - Vital signs Last Vital Signs Temp 98.4 F 11/25/20 07:15 Pulse 78 11/25/20 07:15 Resp 18 11/25/20 07:15 BP 142/63 11/25/20 07:15 Pulse Ox 95 11/25/20 07:15
--- NOTE | 2020-11-25 10:43 | Electrocardiograph Report ---
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
--- NOTE | 2020-11-25 10:45 | Electrocardiograph Report ---
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
--- NOTE | 2020-11-25 12:12 | Progress Note ---
Assessment and Plan (1) Recurrent falls - happen at time in sitting and or standing with no associated aura ,she describ es tongue bitting at time and or urinarry incontince-- with assocaited confusion after the fall ? seizure can not be excluded -Ct brain is unremarkable -Suggest MRI brain with Qd if possible is pending -EEG is pending -check for orthostatic changes not done -Cardiac monitoring -Consider STOP welbutrin due to side effect of aggravating seizure.+++++ (2) Hallucinations -Patient has no history of mental illness. - Evaluated by psychiatry today -on multiple medications (3) Mild renal insufficiency -Patient will be placed on IV fluid. (4) DVT prophylaxis -Patient placed on subcutaneous heparin. (5) Full code status Patient is a full code. Will follow as needed Subjective Date of service: 11/25/20 Principal diagnosis: recurrent fall Interval history: pt. is same she is with less halluciantion and with depression no orthostatic was done EEG is pending as well as MRI brain Objective - Vital Sign Vital Signs - 12hr 11/25/20 11/25/20 06:10 07:15 Temperature 98.2 F 98.4 F Pulse Rate 82 78 Respiratory 16 18 Rate Blood Pressure 142/63 Blood Pressure 117/55 [Left] O2 Sat by Pulse 97 95 Oximetry - Laboratory Findings CBC and BMP: 11/25/20 06:54 11/25/20 07:00 Abnormal Lab Findings: Abnormal Labs 11/23/20 11/23/20 11/23/20 16:57 16:57 22:14 WBC 4.0 L MCV 99 H MCH 33 H [place]DW Lymph % (Auto) [place] % (Auto) 8.4 H Lymph # (Auto) 1.1 L Seg Neutrophils # Potassium Chloride BUN 19 H Glucose 117 H POC Glucose Ammonia 13.0 L Urine WBC (Auto) 11/23/20 11/24/20 11/25/20 22:21 16:13 06:54 WBC 3.2 L MCV 99 H MCH RDW 13.1 L Lymph % (Auto) 46.1 H [place] % (Auto) 9.0 H Lymph # (Auto) Seg Neutrophils # 1.4 L Potassium Chloride BUN Glucose POC Glucose 208 H Ammonia Urine WBC (Auto) 7.0 H 11/25/20 07:00 WBC MCV MCH RDW Lymph % (Auto) [place] % (Auto) Lymph # (Auto) Seg Neutrophils # Potassium 3.4 L Chloride 107.4 H BUN Glucose POC Glucose Ammonia Urine WBC (Auto)
[2020-11-25] MEDS: MIRTAZAPINE 15 MG TAB PO SCH (21:42)
[2020-11-26] MEDS: INSULIN LISPRO 100 UNIT/ML SUB-Q SCH ×3 (06:41→13:50)
[2020-11-26] MEDS: HEPARIN 5,000 UNIT/1 ML VIAL SUB-Q SCH ×2 (07:05→13:50)
[2020-11-26] MEDS: buPROPion 75 MG TAB PO SCH ×2 (10:11→11:43)
[2020-11-26] MEDS: ARIPiprazole 10 MG TAB PO SCH ×3 (10:11→13:51)
--- NOTE | 2020-11-26 10:24 | Progress Note ---
Subjective - Reason for Consult Consult date: 11/26/20 Reason for consult: MHE Requesting physician: AQUILINO DONATO - Chief Complaint Chief complaint: Psych Progress Patient seen this AM endorses still hearing voices, and they are all saying mean derogatory things about her. Patient states she needs help, appears tearful. Patient also admits to being confused at the moment, and expresses desire to get better. REVIEW OF SYSTEMS Constitutional: Negative for weight loss ENT: Negative for stridor Respiratory: Negative for cough or hemoptysis All other systems reviewed and are negative MENTAL STATUS EXAMINATION General Appearance and Behavior: Age appropriate, good hygiene, wearing appropriate clothes, poor eye contact Cooperation: Participating/engaged, but Guarded Psychomotor Behavior: Psychomotor normal Mood: depressed Affect and affective range: tearful Thought Process: illogical Thought Content: hopelessness, hallucinations Speech: Normal rate, volume and rhythm Intellectual Functioning: Average Suicidal Ideation: Yes Homicidal Ideation: Denies HI Hallucinations: A/V Delusions: Paranoid Impulse Control: Impaired Insight and Judgment: Limited insight and judgment Memory: Normal Attention: Normal Orientation: Alert, oriented Diagnoses Major Depressive Disorder, Severe, with Psychotic Features Treatment Plan Continue Wellbutrin 150mg po BID Increased Abilify 10mg po daily Continue Mirtazepine 7.5mg po qhs Risks, benefits and alternatives of medications discussed with the patient, questions answered and consent obtained from patient. PSYCHOTHERAPY: Supportive psychotherapy provided MEDICAL: Per primary team DELIRIUM PRECAUTIONS: Please re-orient patient frequently, keep lights on during the day, and minimize benzodiazepines and opiates as these medications could worsen patient's confusion. CHEF DE PARTIE: DISPOSITION: Recommend acute inpatient psychiatric hospitalization at this time. Case discussed with Dr. Smith who agrees with current disposition LEGAL STATUS: 1013 FOLLOW-UP: Will follow Thank you for the consult. Please contact with any questions and/or concerns. Mental Status Exam - Vital signs Last Vital Signs Temp 97.0 F L 11/26/20 07:04 Pulse 77 11/26/20 07:04 Resp 18 11/26/20 07:04 BP 142/68 11/26/20 07:04 Pulse Ox 98 11/26/20 07:04
--- NOTE | 2020-11-26 11:00 | Progress Note ---
Assessment and Plan Assessment and plan: 65-year-old female presenting in the emergency room today with complaints of recurrent fall. She indicates she has had multiple falls today and has been having some low back pain and bilateral hip pain. Patient has significant past medical history of arthritis, asthma, diabetes mellitus, hypertension, hypothyroidism, COPD, pseudotumor cerebri. Family indicates that patient has been confused and has had auditory, visual hallucination and paranoia over the past 3 to 4 days. Patient denies any psyc hiatric illness. Patient has also had a recent fall for which she will was evaluated at [facility] about a week ago. She denies any significant injury at that time. There has been no history of chest pain or shortness of breath, no fever or chills, no headache, no neck pain, no nausea vomiting and no abdominal pain. Patient denies any hematuria or dysuria. Work-up in the emergency room today reveals Transverse process fracture seen on the right at L3 level as well with approximately 5 mm of displacement noted. All other work-up including CT scan of the head and chest x-ray have been unremarkable. Patient is being admitted with recurrent fall and hallucinations. Visual Hallucinations Recurrent falls copd Hypokalemia MYAH with vasomotor nephropathy Leukopenia PLAN Continue supportive care Awaiting EEG result Spoke TO Daughter extensively and she say they plan for the pt to see Psychiatrist, but the patient wants to stay. Agree welbutrin due to side effect of aggravating seizure [facility] TEAM AWAITING COVID 19 TEST. History Interval history: Patient seen and examined this morning ambulating daughter at bedside no new co mplaints. Hospitalist Physical - Physical exam Narrative exam: VITAL SIGNS: Reviewed. GENERAL: The patient appears normally developed, cachectic vital signs as documented. HEAD: No signs of head trauma. Right frontal head excoriation noted EYES: Pupils are equal. Extraocular motions intact. EARS: Hearing grossly intact. MOUTH: Oropharynx is normal. NECK: No adenopathy, no JVD. CHEST: Chest with clear breath sounds bilaterally. No wheezes, rales, or rhonchi. CARDIAC: Regular rate and rhythm. S1 and S2, without murmurs, gallops, or rubs. VASCULAR: No Edema. Peripheral pulses normal and equal in all extremities. ABDOMEN: Soft, non tender and non distended. No rebound or guarding, and no masses palpated. Bowel Sounds normal. MUSCULOSKELETAL: Good range of motion of all major joints. Extremities without clubbing, cyanosis or edema. NEUROLOGIC EXAM: Alert and oriented x 3 No focal sensory or strength deficits. Speech normal. Follows commands. PSYCHIATRIC: Mood normal. SKIN: detail exam as documented in skin assessment - Constitutional Vitals: Temp Pulse Resp BP Pulse Ox 97.0 F L 77 18 142/68 98 11/26/20 07:04 11/26/20 07:04 11/26/20 07:04 11/26/20 07:04 11/26/20 07:04 General appearance: Present: no acute distress, well-nourished HEART Score - HEART Score Troponin: Troponin T < 0.010 ng/mL (0.00-0.029) 11/23/20 16:57 Results - Labs CBC & Chem 7: 11/25/20 06:54 11/25/20 07:00 Labs: Laboratory Last Values WBC 3.2 K/mm3 (4.5-11.0) L 11/25/20 06:54 RBC 4.10 M/mm3 (3.65-5.03) 11/25/20 06:54 Hgb 13.2 gm/dl (10.1-14.3) 11/25/20 06:54 Hct 40.3 % (30.3-42.9) 11/25/20 06:54 MCV 99 fl (79-97) H 11/25/20 06:54 MCH 32 pg (28-32) 11/25/20 06:54 MCHC 33 % (30-34) 11/25/20 06:54 RDW 13.1 % (13.2-15.2) L 11/25/20 06:54 Plt Count 219 K/mm3 (140-440) 11/25/20 06:54 Lymph % (Auto) 46.1 % (13.4-35.0) H 11/25/20 06:54 [place] % (Auto) 9.0 % (0.0-7.3) H 11/25/20 06:54 Eos % (Auto) 0.9 % (0.0-4.3) 11/25/20 06:54 Baso % (Auto) 1.3 % (0.0-1.8) 11/25/20 06:54 Lymph # (Auto) 1.5 K/mm3 (1.2-5.4) 11/25/20 06:54 [place] # (Auto) 0.3 K/mm3 (0.0-0.8) 11/25/20 06:54 Eos # (Auto) 0.0 K/mm3 (0.0-0.4) 11/25/20 06:54 Baso # (Auto) 0.0 K/mm3 (0.0-0.1) 11/25/20 06:54 Seg Neutrophils % 42.7 % (40.0-70.0) 11/25/20 06:54 Seg Neutrophils # 1.4 K/mm3 (1.8-7.7) L 11/25/20 06:54 PT 13.0 Sec. (12.2-14.9) 11/25/20 07:00 INR 1.00 (0.87-1.13) 11/25/20 07:00 Sodium 144 mmol/L (137-145) D 11/25/20 07:00 Potassium 3.4 mmol/L (3.6-5.0) L 11/25/20 07:00 Chloride 107.4 mmol/L (98-107) H 11/25/20 07:00 Carbon Dioxide 26 mmol/L (22-30) 11/25/20 07:00 Anion Gap 14 mmol/L 11/25/20 07:00 BUN 13 mg/dL (7-17) 11/25/20 07:00 Creatinine 0.9 mg/dL (0.6-1.2) 11/25/20 07:00 Estimated GFR > 60 ml/min 11/25/20 07:00 BUN/Creatinine Ratio 14 % 11/25/20 07:00 Glucose 89 mg/dL (65-100) 11/25/20 07:00 POC Glucose 101 mg/dL (70-105) 11/26/20 07:28 Calcium 8.8 mg/dL (8.4-10.2) 11/25/20 07:00 Magnesium 2.10 mg/dL (1.7-2.3) 11/23/20 16:57 Total Bilirubin 0.30 mg/dL (0.1-1.2) 11/23/20 16:57 AST 19 units/L (5-40) 11/23/20 16:57 ALT 12 units/L (7-56) 11/23/20 16:57 Alkaline Phosphatase 67 units/L (35-129) 11/23/20 16:57 Ammonia 13.0 umol/L (25-60) L 11/23/20 22:14 Total Creatine Kinase 132 units/L (30-135) 11/23/20 16:57 Troponin T < 0.010 ng/mL (0.00-0.029) 11/23/20 16:57 Total Protein 6.8 g/dL (6.3-8.2) 11/23/20 16:57 Albumin 3.9 g/dL (3.9-5) 11/23/20 16:57 Albumin/Globulin Ratio 1.3 % 11/23/20 16:57 TSH 0.355 mlU/mL (0.270-4.200) 11/23/20 22:14 Urine Color Yellow (Yellow) 11/23/20 22:21 Urine Turbidity Slightly-cloudy (Clear) 11/23/20 22:21 Urine pH 6.0 (5.0-7.0) 11/23/20 22:21 Ur Specific [place] 1.021 (1.003-1.030) 11/23/20 22:21 Urine Protein 30 mg/dl mg/dL (Negative) 11/23/20 22:21 Urine Glucose (UA) Neg mg/dL (Negative) 11/23/20 22:21 Urine Ketones 20 mg/dL (Negative) 11/23/20 22:21 Urine Blood Neg (Negative) 11/23/20 22:21 Urine Nitrite Neg (Negative) 11/23/20 22:21 Urine Bilirubin Neg (Negative) 11/23/20 22:21 Urine Urobilinogen 2.0 mg/dL (<2.0) 11/23/20 22:21 Ur Leukocyte Esterase Tr (Negative) 11/23/20 22:21 Urine WBC (Auto) 7.0 /HPF (0.0-6.0) H 11/23/20 22:21 Urine RBC (Auto) 1.0 /HPF (0.0-6.0) 11/23/20 22:21 U Epithel Cells (Auto) 1.0 /HPF (0-13.0) 11/23/20 22:21 Urine Mucus Few /HPF 11/23/20 22:21 Urine Opiates Screen Presumptive positive 11/23/20 22:21 Urine Methadone Screen Presumptive negative 11/23/20 22:21 Ur Barbiturates Screen Presumptive negative 11/23/20 22:21 Ur Phencyclidine Scrn Presumptive negative 11/23/20 22:21 Ur Amphetamines Screen Presumptive negative 11/23/20 22:21 U Benzodiazepines Scrn Presumptive negative 11/23/20 22:21 Urine Cocaine Screen Presumptive negative 11/23/20 22:21 U Marijuana (THC) Screen Presumptive negative 11/23/20 22:21 Drugs of Abuse Note Disclamer 11/23/20 22:21 Plasma/Serum Alcohol < 0.01 % (0-0.07) 11/23/20 22:14 Myers/IV: Voiding Method Toilet Active Medications - Current Medications Current Medications: Generic Name Dose Route Start Last Admin Trade Name Freq PRN Reason Stop Dose Admin Acetaminophen 650 mg 11/24/20 00:20 Acetaminophen 325 Mg Tab PO Q4H PRN Pain MILD(1-3)/Fever >100.5/MCLEOD Aripiprazole 10 mg 11/26/20 08:00 11/26/20 10:11 Aripiprazole 10 Mg Tab PO 10 mg QDAY NARDA Administration Bupropion HCl 150 mg 11/24/20 11:00 11/26/20 10:11 Bupropion 75 Mg Tab PO 150 mg BID NARDA Administration Dextrose 50 ml 11/24/20 00:20 Dextrose 50% In Water (25gm) 50 Ml Syringe IV Q30MIN PRN Hypoglycemia Protocol Heparin Sodium (Porcine) 5,000 unit 11/24/20 06:00 11/26/20 07:05 Heparin 5,000 Unit/1 Ml Vial SUB-Q 5,000 unit Q8HR NARDA Administration Sodium Chloride 1,000 mls @ 75 mls/hr 11/24/20 00:30 11/24/20 21:43 Nacl 0.9% 1000 Ml IV Infused DIRECT NARDA Infusion Insulin Human Lispro 0 unit 11/24/20 07:30 11/26/20 09:30 Insulin Lispro 100 Unit/Ml SUB-Q Not Given ACHS NARDA Protocol Magnesium Hydroxide 30 ml 11/24/20 00:20 Magnesium Hydroxide (Mom) Oral Liqd Udc PO Q4H PRN Constipation Mirtazapine 7.5 mg 11/24/20 21:00 11/25/20 21:42 Mirtazapine 15 Mg Tab PO 7.5 mg QHS NARDA Administration Morphine Sulfate 2 mg 11/24/20 00:20 11/24/20 21:47 Morphine 2 Mg/1 Ml Inj IV 2 mg Q4H PRN Administration Pain, Moderate (4-6) Ondansetron HCl 4 mg 11/24/20 00:20 Ondansetron 4 Mg/2 Ml Inj IV Q8H PRN Nausea And Vomiting Sodium Chloride 10 ml 11/24/20 08:00 11/26/20 10:13 Sodium Chloride 0.9% 10 Ml Flush Syringe IV 10 ml BID NARDA Administration Sodium Chloride 10 ml 11/24/20 00:20 Sodium Chloride 0.9% 10 Ml Flush Syringe IV PRN PRN LINE FLUSH Nutrition/Malnutrition Assess - Dietary Evaluation Nutrition/Malnutrition Findings: Nutrition Notes Start: 11/24/20 08:03 Freq: Status: Active Protocol: Document 11/24/20 08:03 LP (Rec: 11/24/20 08:05 LP [email or web address]) Nutrition Notes Need for Assessment generated from: 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 Pt denies wt changes. Pt denies need for diet education. Pt states she does not have diabetes. Nutrition Intervention Revisit per MD consult or patient Sign Off request:
[2020-11-26 15:23] VITALS: BP 150/71
== END 2020-11-26 18:15 ==
LOC: ED 14:36 → 3B-SURG 11-24 00:09 → 3B 11-24 02:07
PROVIDERS: ADMIT Internal Medicine Geriatric Medicine; ATTEND Internal Medicine
DX: S32.009A Unspecified fracture of unspecified lumbar vertebra, initial encounter for closed fracture (principal); Z20.822 Contact with and (suspected) exposure to COVID-19; R44.1 Visual hallucinations; R44.0 Auditory hallucinations; I12.9 Hypertensive chronic kidney disease with stage 1 through stage 4 chronic kidney disease, or unspecified chronic kidney disease; N18.30 Chronic kidney disease, stage 3 unspecified; J44.9 Chronic obstructive pulmonary disease, unspecified; M19.90 Unspecified osteoarthritis, unspecified site; R29.6 Repeated falls; N39.0 Urinary tract infection, site not specified; N28.9 Disorder of kidney and ureter, unspecified; M81.0 Age-related osteoporosis without current pathological fracture; E03.9 Hypothyroidism, unspecified; E87.6 Hypokalemia; F32.9 Major depressive disorder, single episode, unspecified; N17.0 Acute kidney failure with tubular necrosis; D72.819 Decreased white blood cell count, unspecified; Z98.84 Bariatric surgery status; Z91.81 History of falling; Z90.49 Acquired absence of other specified parts of digestive tract; Z98.890 Other specified postprocedural states; Z98.891 History of uterine scar from previous surgery; Z79.82 Long term (current) use of aspirin; Z79.4 Long term (current) use of insulin; Z90.710 Acquired absence of both cervix and uterus; Z79.899 Other long term (current) drug therapy; X58.XXXA Exposure to other specified factors, initial encounter; Y92.89 Other specified places as the place of occurrence of the external cause; Y93.89 Activity, other specified; Y99.8 Other external cause status
CPT/HCPCS: 36415; 70450; 71101; 72131; 73502; 80048; 80053; 80307; 81001; 82140; 82550; 82962; 83735; 84443; 84484; 85025; 85610; 93005; 95819; 96361; 96372; 96374; 97162; 97165; 99285; G0378; J1644; J2270; J7030; U0003; 80320; G0480

== ENCOUNTER 2020-11-26 16:18 | Inpatient (IN) | payer MEDICARE ==
--- NOTE | 2020-11-26 20:22 | Consultation ---
History of Present Illness - Reason for Consult Consult date: 11/26/20 Medical management Requesting physician: GIANNA COOK - History of Present Illness 65 YO Female with Vascular Dementia with Behavioral Disturbance, Cerebral Atherosclerosis, OA, COPD, HTN, Pseudotumor Cerebrii admitted to [facility] for Psychiatric Stabilization. Consult placed by Dr. Cook for medical management. Pt seen and evaluated in her room. Pt denies fever, chills, chest pain, palpitation, productive cough, skin rash, recent ill contacts. No reported nursing events. Patient resting comfortably. Past History Past Surgical History: appendectomy, cholecystectomy, , thyroidectomy, tonsillectomy, bowel surgery, Other (gastric bypass, breast reduction) Social history: . denies: smoking, alcohol abuse, prescription drug abuse Family history: hypertension Medications and Allergies Allergies Allergy/AdvReac Type Severity Reaction Status Date / Time aspirin Allergy Shortness Verified 11/23/20 15:06 of Breath meperidine HCl [From Demerol] Allergy Itching Verified 11/23/20 15:06 NSAIDS (Non-Steroidal Allergy Shortness Verified 11/23/20 15:06 Anti-Inflamma of Breath Cheese Allergy Shortness Uncoded 11/23/20 15:06 of Breath Home Medications Medication Instructions Recorded Confirmed Last Taken Type oxyCODONE /ACETAMINOPHEN [Percocet 1 tab PO Q6HR PRN #20 tablet 01/30/14 Unknown Rx 5/325 mg] ARIPiprazole 5 mg PO QDAY #1 tablet 11/25/20 Unknown Rx Mirtazapine [Remeron 15mg TAB] 7.5 mg PO QHS #1 tablet 11/25/20 Unknown Rx buPROPion [Wellbutrin] 150 mg PO BID #1 tablet 11/25/20 Unknown Rx ARIPiprazole [Abilify TAB] 10 mg PO QDAY tablet 11/26/20 Unknown Rx Active Meds: Active Medications Melatonin (Melatonin 5 Mg Tab) 5 mg PO QHS PRN PRN Reason: Sleep Trazodone HCl (Trazodone 50 Mg Tab) 50 mg PO QHS NARDA Review of Systems Constitutional: no weight loss, no weight gain, no fever, no chills Ears, nose, mouth and throat: no ear pain, no ear discharge, no tinnitis, no decreased hearing, no nose pain, no nasal congestion Breasts: no change in shape, no swelling, no mass Cardiovascular: no chest pain, no orthopnea, no palpitations Respiratory: no cough, no cough with sputum, no hemoptysis, no shortness of breath Gastrointestinal: no abdominal pain, no nausea, no diarrhea, no constipation, no change in bowel habits Genitourinary Female: no pelvic pain, no flank pain, no dysuria, no urinary frequency, no urgency Rectal: no pain, no incontinence, no bleeding Musculoskeletal: no neck stiffness, no shooting arm pain, no arm numbness/tingling Integumentary: no rash, no pruritis, no wounds Neurological: no transient paralysis, no parathesias, no numbness, no tingling Psychiatric: hallucinations, depression, mood swings Endocrine: no cold intolerance, no polyphagia, no excessive thirst, no polydipsia, no nocturia Hematologic/Lymphatic: no easy bruising Allergic/Immunologic: no urticaria, no allergic rhinitis Exam - Constitutional General appearance: Present: no acute distress, well-nourished - EENT Eyes: Present: PERRL ENT: hearing intact, clear oral mucosa - Neck Neck: Present: supple, normal ROM - Respiratory Respiratory effort: normal Respiratory: bilateral: CTA - Cardiovascular Heart Sounds: Present: S1 & S2. Absent: rub, click - Extremities Extremities: pulses symmetrical, No edema Peripheral Pulses: within normal limits - Abdominal General gastrointestinal: Present: soft, non-tender, non-distended, normal bowel sounds Female genitourinary: Present: normal - Integumentary Integumentary: Present: clear, warm, dry - Musculoskeletal Musculoskeletal: gait normal, strength equal bilaterally - Psychiatric Psychiatric: appropriate mood/affect, intact judgment & insight - Neurologic Neurologic: CNII-XII intact, moves all extremities Assessment and Plan - Patient Problems (1) Vascular dementia with behavioral disturbance Current Visit: Yes Status: Acute Plan to address problem: Verbal prompting, verbal redirection, benzodiazepine therapy as clinically indicated. (2) Cerebral atherosclerosis Current Visit: Yes Status: Acute Plan to address problem: Risk factor reduction, supportive care. (3) HTN (hypertension) Current Visit: Yes Status: Acute Qualifiers: Hypertension type: essential hypertension Qualified Code(s): I10 - Essential (primary) hypertension Plan to address problem: Monitor BP q shift,
[2020-11-26] MEDS ORDERED: oxyCODONE /ACETAMINOPHEN 5-325MG TAB PO PRN (20:31)
[2020-11-26] MEDS: buPROPion 75 MG TAB PO SCH (21:16)
[2020-11-26] MEDS: MELATONIN 5 MG TAB PO PRN (21:16)
[2020-11-26] MEDS: traZODone 50 MG TAB PO SCH (21:16)
[2020-11-27] MEDS: buPROPion 75 MG TAB PO SCH ×2 (09:43→21:05)
[2020-11-27] MEDS ORDERED: ARIPiprazole 5 MG TAB PO SCH (10:00)
[2020-11-27] MEDS ORDERED: ARIPiprazole 10 MG TAB PO SCH (10:00)
--- NOTE | 2020-11-27 10:04 | History and Physical Report ---
GP History & Physical - History of Present Illness Date of admission: 11/26/20 Date of Examination: 11/27/20 Reason for Admission: Danger to self, Psychopathology interference History of Present Illness: Per ED Provider: This is a 65-year-old female presents to the emergency department with complaint of a fall this afternoon that caused subsequent pain to the low back, pelvis and bilateral hips. The patient's is currently at bedside and says that he woke up and found her on the floor. She appeared confused and had obviously fallen off of the couch. Unknown loss of consciousness. He also says that the patient has been experiencing both auditory and visual hallucinations and paranoia over the past 3 to 4 days. This has never happened previously and she does not have any psychiatric history. Patient appears to have some recent falls as he went to [facility] late last week for a different fall. says that there was no significant injury found other than "they said that she bruised her spine." The patient has a past medical history of asthma, arthritis, COPD, diabetes, hypertension, hypothyroidism, pseudotumor cerebri. The patient is oriented, AAO x3. She says that she has visual hallucinations when she thinks that there are people in the room and sees "shadows." She has difficulty explaining the auditory hallucinations. During my examination the patient told me "just let him () answer the phone because it keeps ringing." There was no phone ringing at this time and the acknowledges that this is an example of what has been going on. PSYCH HPI Patient is a currently unemployed disabled female who resides with with no prior psychiatric history but has past medical history of asthma, arthritis, COPD, diabetes, hypertension, hypothyroidism, pseudotumor cerebri. who presented for fall related concerns and also found to be having persistent auditory hallucinations. Patient appears to have disorganized thought content, did endorrse feeling down and sad lately and has been having auditory hallucination telling her mean derogatory things about herself that breaks her down. Patient During my assessment of 64 y/o Fidencio Sebastian, she is lying down. She is visibly upset. She is crying and has her faced covered with her hand. She makes no eye contact at all. DUe to psychpathological interference, patient appears unable to care for self at this moment. PAST PSYCHIATRIC HISTORY Diagnoses: anxiety and depression Suicide attempts or Self-harm behavior: Denies Prior psychiatric hospitalizations: Denies Substance Abuse history: Denies Previous psychiatric medications tried: wellbutrin, cymbalta Outpatient treatment: none reported PAST MEDICAL HISTORY: COPD, DM, HTN, Asthma, Arthritis Family Psychiatric History: None reported or documented SOCIAL HISTORY Marital Status: Living Arrangements: spouse Employment Status: Disabled Access to guns/weapons: none reported Education: high school History of Abuse: Denies Legal History: Denies REVIEW OF SYSTEMS Constitutional: Negative for weight loss ENT: Negative for stridor Respiratory: Negative for cough or hemoptysis All other systems reviewed and are negative MENTAL STATUS EXAMINATION General Appearance and Behavior: Age appropriate, good hygiene, wearing appropriate clothes, poor eye contact Cooperation: Participating/engaged, but Guarded Psychomotor Behavior: Psychomotor normal Mood: depressed Affect and affective range: tearful Thought Process: illogical Thought Content: hopelessness, hallucinations Speech: Normal rate, volume and rhythm Intellectual Functioning: Average Suicidal Ideation: Yes Homicidal Ideation: Denies HI Hallucinations: A/V Delusions: Paranoid Impulse Control: Impaired Insight and Judgment: Limited insight and judgment Memory: Normal Attention: Normal Orientation: Alert, oriented Assessment and Plan - Psychiatric problem (1) Major depressive disorder with psychotic features Current Visit: Yes Status: Acute F32.3 Treatment Plan Start Olazanpine 5mg QHS and Wellbutrin 150mg BID Patient admitted for inpatient psychiatric evaluation, medication adjustment and close monitoring The patient's behavior, mood, sleep and appetite will be closely monitored. Patient enrolled in individual and group therapeutic sessions and encouraged to attend. Patient provided with a safe and structured environment. Patient's physical health needs will be addressed by the Hospitalist. Hospitalist Consulted Labs including CBC, CMP, Lipid profile and Hemoglobin A1C levels ordered for baseline reference Social Assessment will be completed and the Bowling Ball Grader will work with patient and family to ensure a suitable and safe disposition Medication adjustment will be made as clinically indicated Usual Wellness Shinto/Preservation: - Start Trazodone 50 mg po QHS & 50 mg po QHS PRN between 10 PM & 2 AM for insomnia - Start Melatonin 5 mg po QHS to promote circadian rhythm - Start Dolliver-3 for brain health, reduce impulsivity, and as adjunctive treatment for mood disorder, continue upon discharge given overall benefits. - Start B1 prophylaxis with 200 mg po for 5 days The patient agreed on the treatment plan, understood the risk, benefit, alternative treatment, potential consequence of no treatment, and gave informed consent. Initial Certification Inpatient psych services: I certify that the inpatient psychiatric services are required for treatment that could reasonably be expected to improve the patient's condition. Estimated days: 7 Post hospital care: primary care provider, psychiatric provider Legal Status: Voluntary Patient Problems: Current Active Problems COPD (chronic obstructive pulmonary disease) (Acute) Cerebral atherosclerosis (Acute) Diabetes (Acute) HTN (hypertension) (Acute) Hypothyroidism (Acute) Major depressive disorder with psychotic features (Acute) Vascular dementia with behavioral disturbance (Acute) Reaction to Hospitalization: Accepting Medications and Allergies Allergies Allergy/AdvReac Type Severity Reaction Status Date / Time aspirin Allergy Shortness Verified 11/23/20 15:06 of Breath meperidine HCl [From Demerol] Allergy Itching Verified 11/23/20 15:06 NSAIDS (Non-Steroidal Allergy Shortness Verified 11/23/20 15:06 Anti-Inflamma of Breath Cheese Allergy Shortness Uncoded 11/23/20 15:06 of Breath Home Medications Medication Instructions Recorded Confirmed Last Taken Type oxyCODONE /ACETAMINOPHEN [Percocet 1 tab PO Q6HR PRN #20 tablet 01/30/14 11/27/20 Unknown Rx 5/325 mg] ARIPiprazole 5 mg PO QDAY #1 tablet 11/25/20 11/27/20 Unknown Rx Mirtazapine [Remeron 15mg TAB] 7.5 mg PO QHS #1 tablet 11/25/20 11/27/20 Unknown Rx buPROPion [Wellbutrin] 150 mg PO BID #1 tablet 11/25/20 11/27/20 Unknown Rx ARIPiprazole [Abilify TAB] 10 mg PO QDAY tablet 11/26/20 11/27/20 Unknown Rx Active Meds: Active Medications Aripiprazole (Aripiprazole 10 Mg Tab) 10 mg PO QDAY [facility] Last Admin: 11/27/20 09:43 Dose: 10 mg Documented by: Bupropion HCl (Bupropion 75 Mg Tab) 150 mg PO BID [facility] Last Admin: 11/27/20 09:43 Dose: 150 mg Documented by: Melatonin (Melatonin 5 Mg Tab) 5 mg PO QHS PRN PRN Reason: Sleep Last Admin: 11/26/20 21:16 Dose: 5 mg Documented by: Oxycodone/Acetaminophen (Oxycodone /Acetaminophen 5-325mg Tab) 1 tab PO Q6H PRN PRN Reason: PAIN (4-6) Trazodone HCl (Trazodone 50 Mg Tab) 50 mg PO QHS NARDA Last Admin: 11/26/20 21:16 Dose: 50 mg Documented by: Results - Results Labs/Vitals: Laboratory Last Values POC Glucose 83 mg/dL (70-105) 11/27/20 06:26 Last Vital Signs Temp 98.6 F 11/26/20 22:00 Pulse 110 H 11/26/20 22:00 Resp 18 11/26/20 22:00 BP 143/87 11/26/20 22:00 Pulse Ox 97 11/26/20 22:00 Physical Examination - Constitutional Vitals: Vital Signs Temp Pulse Resp BP Pulse Ox 98.6 F 110 H 18 143/87 97 11/26/20 22:00 11/26/20 22:00 11/26/20 22:00 11/26/20 22:00 11/26/20 22:00 Temperature -Last 24 Hours Temperature 98.6 F Mental Status Exam - Vital signs Last Vital Signs Temp 98.6 F 11/26/20 22:00 Pulse 110 H 11/26/20 22:00 Resp 18 11/26/20 22:00 BP 143/87 11/26/20 22:00 Pulse Ox 97 11/26/20 22:00 Assessment and Plan - Psychiatric problem (1) Major depressive disorder with psychotic features Current Visit: Yes Status: Acute Physician Certification - Certification Statement Physician Certification Statement: This is an acknowledgement statement that FIDENCIO SEBASTIAN is a 65 year old F who requires inpatient psychiatric admission for treatment which could reasonably be expected to improve the patient's condition for Estimated period of time patient will need to remain in the hospital: [ ] Plan for post-hospital care: [ ]
[2020-11-27] MEDS: traZODone 50 MG TAB PO SCH (21:05)
[2020-11-28] MEDS: MELATONIN 5 MG TAB PO PRN (00:04)
[2020-11-28] MEDS: buPROPion 75 MG TAB PO SCH ×2 (09:19→21:19)
--- NOTE | 2020-11-28 10:10 | Progress Note ---
Subjective Date of service: 11/28/20 Principal diagnosis: (1) Major depressive disorder with psychotic features Subjective Comment: Per Psych Nurse: Pt noted with restless night. Pt was psychotic aeb auditory and visual hallucination stating she is hearing "good music playing out there;" police coming to get her; and someone peeping from the window. Pt is frail with unbalance gait. Was treated as if on 1:1 observation for safety. Will continue to closely monitor. Psych Progress HPI The patient states she is not feeling good and not feeling like herself, she reports still hearing voices in her, telling her to do many things and shes also getting pinched on her skin throughout the day and makes her feel real down. Reason for continuing inpatient treatment: Persistent auditory and tactile sensation, will adjust current mediction. Review of Symptoms: Constitutional: Negative for weight loss ENT: Negative for stridor Respiratory: Negative for cough or hemoptysis All other systems reviewed and are negative MENTAL STATUS EXAMINATION General Appearance and Behavior: Age appropriate, good hygiene, wearing appropriate clothes, poor eye contact Cooperation: Participating/engaged, but Guarded Psychomotor Behavior: Psychomotor normal Mood: depressed Affect and affective range: tearful Thought Process: illogical Thought Content: hopelessness, hallucinations Speech: Normal rate, volume and rhythm Intellectual Functioning: Average Suicidal Ideation: Yes Homicidal Ideation: Denies HI Hallucinations: A/V Delusions: Paranoid Impulse Control: Impaired Insight and Judgment: Limited insight and judgment Memory: Normal Attention: Normal Orientation: Alert, oriented Treatment Plan Patient admitted for inpatient psychiatric evaluation, medication adjustment and close monitoring The patient's behavior, mood, sleep and appetite will be closely monitored. Patient enrolled in individual and group therapeutic sessions and encouraged to attend. Patient provided with a safe and structured environment. Patient's physical health needs will be addressed by the Hospitalist. Hospitalist Consulted Labs including CBC, CMP, Lipid profile and Hemoglobin A1C levels ordered for baseline reference Social Assessment will be completed and the Fill Technician will work with patient and family to ensure a suitable and safe disposition Medication adjustment will be made as clinically indicated Usual Wellness Rastafari/Preservation: - Start Trazodone 50 mg po QHS & 50 mg po QHS PRN between 10 PM & 2 AM for insomnia - Start Melatonin 5 mg po QHS to promote circadian rhythm - Start [place]-3 for brain health, reduce impulsivity, and as adjunctive treatment for mood disorder, continue upon discharge given overall benefits. - Start B1 prophylaxis with 200 mg po for 5 days The patient agreed on the treatment plan, understood the risk, benefit, alternative treatment, potential consequence of no treatment, and gave informed consent. Initial Certification Inpatient psych services: I certify that the inpatient psychiatric services are required for treatment that could reasonably be expected to improve the patient's condition. Estimated days: 7 Post hospital care: primary care provider, psychiatric provider Assessment and Plan - Patient Problems (1) Major depressive disorder with psychotic features Current Visit: Yes Status: Acute Medications and Allergies Allergies Allergy/AdvReac Type Severity Reaction Status Date / Time aspirin Allergy Shortness Verified 11/23/20 15:06 of Breath meperidine HCl [From Demerol] Allergy Itching Verified 11/23/20 15:06 NSAIDS (Non-Steroidal Allergy Shortness Verified 11/23/20 15:06 Anti-Inflamma of Breath Cheese Allergy Shortness Uncoded 11/23/20 15:06 of Breath Home Medications Medication Instructions Recorded Confirmed Last Taken Type oxyCODONE /ACETAMINOPHEN [Percocet 1 tab PO Q6HR PRN #20 tablet 01/30/14 11/27/20 Unknown Rx 5/325 mg] ARIPiprazole 5 mg PO QDAY #1 tablet 11/25/20 11/27/20 Unknown Rx Mirtazapine [Remeron 15mg TAB] 7.5 mg PO QHS #1 tablet 11/25/20 11/27/20 Unknown Rx buPROPion [Wellbutrin] 150 mg PO BID #1 tablet 11/25/20 11/27/20 Unknown Rx ARIPiprazole [Abilify TAB] 10 mg PO QDAY tablet 11/26/20 11/27/20 Unknown Rx Active Meds: Active Medications Bupropion HCl (Bupropion 75 Mg Tab) 150 mg PO BID [facility] Last Admin: 11/28/20 09:19 Dose: 150 mg Documented by: Melatonin (Melatonin 5 Mg Tab) 5 mg PO QHS PRN PRN Reason: Sleep Last Admin: 11/28/20 00:04 Dose: 5 mg Documented by: Olanzapine (Olanzapine 5 Mg Tab) 5 mg PO QHS [facility] Last Admin: 11/27/20 21:05 Dose: 5 mg Documented by: Oxycodone/Acetaminophen (Oxycodone /Acetaminophen 5-325mg Tab) 1 tab PO Q6H PRN PRN Reason: PAIN (4-6) Trazodone HCl (Trazodone 50 Mg Tab) 50 mg PO QHS [facility] Last Admin: 11/27/20 21:05 Dose: 50 mg Documented by: Results - Results Labs/Vitals: Laboratory Last Values POC Glucose 84 mg/dL (70-105) 11/28/20 06:15 Last Vital Signs Temp 98.9 F 11/28/20 08:30 Pulse 117 H 11/28/20 08:30 Resp 18 11/28/20 08:30 BP 124/60 11/28/20 08:30 Pulse Ox 98 11/28/20 08:30
--- NOTE | 2020-11-28 20:35 | Progress Note ---
Assessment and Plan - Patient Problems (1) Vascular dementia with behavioral disturbance Current Visit: Yes Status: Acute Plan to address problem: Verbal prompting, verbal redirection, benzodiazepine therapy as clinically indicated. (2) Cerebral atherosclerosis Current Visit: Yes Status: Acute Plan to address problem: Risk factor reduction, supportive care. (3) HTN (hypertension) Current Visit: Yes Status: Acute Qualifiers: Hypertension type: essential hypertension Qualified Code(s): I10 - Essential (primary) hypertension Plan to address problem: Monitor BP q shift, History Interval history: 65 YO Female with Vascular Dementia with Behavioral Disturbance, Cerebral Atherosclerosis, OA, COPD, HTN, Pseudotumor Cerebrii admitted to [facility] for Psychiatric Stabilization. Pt seen and evaluated in her room. No reported nursing events. Patient resting comfortably. Hospitalist Physical - Constitutional Vitals: Temp Pulse Resp BP Pulse Ox 98.9 F 117 H 18 124/60 98 11/28/20 08:30 11/28/20 08:30 11/28/20 08:30 11/28/20 08:30 11/28/20 08:30 General appearance: Present: no acute distress, well-nourished - EENT Eyes: Present: PERRL, EOM intact ENT: hearing intact - Neck Neck: Present: supple - Respiratory Respiratory: bilateral: diminished - Cardiovascular Rhythm: regular Heart Sounds: Present: S1 & S2 - Extremities Extremities: no ischemia Peripheral Pulses: within normal limits - Abdominal General gastrointestinal: soft, non-tender, non-distended - Integumentary Integumentary: Present: clear, dry - Psychiatric Psychiatric: cooperative - Neurologic Neurologic: CNII-XII intact Results - Labs Labs: Laboratory Last Values POC Glucose 84 mg/dL (70-105) 11/28/20 06:15 Myers/IV: Voiding Method Toilet Active Medications - Current Medications Current Medications: Generic Name Dose Route Start Last Admin Trade Name Freq PRN Reason Stop Dose Admin Bupropion HCl 150 mg 11/26/20 22:00 11/28/20 09:19 Bupropion 75 Mg Tab PO 150 mg BID [facility] Administration Melatonin 5 mg 11/26/20 17:06 11/28/20 00:04 Melatonin 5 Mg Tab PO 5 mg QHS PRN Administration Sleep Olanzapine 7.5 mg 11/28/20 22:00 Olanzapine 5 Mg Tab PO QHS NARDA Oxycodone/Acetaminophen 1 tab 11/26/20 20:31 Oxycodone /Acetaminophen 5-325mg Tab PO Q6H PRN PAIN (4-6) Trazodone HCl 50 mg 11/26/20 22:00 11/27/20 21:05 Trazodone 50 Mg Tab PO 50 mg QHS NARDA Administration
--- NOTE | 2020-11-28 20:36 | Progress Note ---
Assessment and Plan - Patient Problems (1) Vascular dementia with behavioral disturbance Current Visit: Yes Status: Acute Plan to address problem: Verbal prompting, verbal redirection, benzodiazepine therapy as clinically indicated. (2) Cerebral atherosclerosis Current Visit: Yes Status: Acute Plan to address problem: Risk factor reduction, supportive care. (3) HTN (hypertension) Current Visit: Yes Status: Acute Qualifiers: Hypertension type: essential hypertension Qualified Code(s): I10 - Essential (primary) hypertension Plan to address problem: Monitor BP q shift, History Interval history: 65 YO Female with Vascular Dementia with Behavioral Disturbance, Cerebral Atherosclerosis, OA, COPD, HTN, Pseudotumor Cerebrii admitted to [facility] for Psychiatric Stabilization. Pt seen and evaluated in the recreation room. No reported nursing events. Patient resting comfortably. Hospitalist Physical - Constitutional Vitals: Temp Pulse Resp BP Pulse Ox 98.9 F 117 H 18 124/60 98 11/28/20 08:30 11/28/20 08:30 11/28/20 08:30 11/28/20 08:30 11/28/20 08:30 General appearance: Present: no acute distress, well-nourished - EENT Eyes: Present: PERRL, EOM intact ENT: hearing intact - Neck Neck: Present: supple - Respiratory Respiratory effort: normal Respiratory: bilateral: CTA - Cardiovascular Rhythm: regular Heart Sounds: Present: S1 & S2 - Extremities Extremities: no ischemia Peripheral Pulses: within normal limits - Abdominal General gastrointestinal: soft, non-tender, non-distended - Integumentary Integumentary: Present: clear, dry - Psychiatric Psychiatric: cooperative - Neurologic Neurologic: CNII-XII intact Results - Labs Labs: Laboratory Last Values POC Glucose 84 mg/dL (70-105) 11/28/20 06:15 Myers/IV: Voiding Method Toilet Active Medications - Current Medications Current Medications: Generic Name Dose Route Start Last Admin Trade Name Freq PRN Reason Stop Dose Admin Bupropion HCl 150 mg 11/26/20 22:00 11/28/20 09:19 Bupropion 75 Mg Tab PO 150 mg BID NAR[facility] Administration Melatonin 5 mg 11/26/20 17:06 11/28/20 00:04 Melatonin 5 Mg Tab PO 5 mg QHS PRN Administration Sleep Olanzapine 7.5 mg 11/28/20 22:00 Olanzapine 5 Mg Tab PO QHS N[facility] Oxycodone/Acetaminophen 1 tab 11/26/20 20:31 Oxycodone /Acetaminophen 5-325mg Tab PO Q6H PRN PAIN (4-6) Trazodone HCl 50 mg 11/26/20 22:00 11/27/20 21:05 Trazodone 50 Mg Tab PO 50 mg QHS NARDA Administration
[2020-11-28] MEDS: traZODone 50 MG TAB PO SCH (21:19)
[2020-11-28 23:06] LABS: Hematocrit 37.4 % (30.3-42.9); Hemoglobin 12.4 gm/dl (10.1-14.3); Lymphocytes # (Auto) 1.7 K/mm3 (1.2-5.4); Lymphocytes % (Auto) 38.8 % (13.4-35.0); Mean Corpuscular HGB Conc 33 % (30-34); Mean Corpuscular Volume 99 fl (79-97); Monocytes # (Auto) 0.4 K/mm3 (0.0-0.8); Platelet Count 198 K/mm3 (140-440); Red Blood Count 3.78 M/mm3 (3.65-5.03); Red Cell Distribution Width 13.6 % (13.2-15.2)
[2020-11-28 23:49] LABS: Alanine Aminotransferase 9 units/L (7-56); Albumin 3.7 g/dL (3.9-5); BUN/Creatinine Ratio 21; Blood Urea Nitrogen 19 mg/dL (7-17); Calcium 9.1 mg/dL (8.4-10.2); Hemolysis Index 5
[2020-11-29 00:44] LABS: Chol/HDL Ratio 2.48 %; HDL Cholesterol 87 mg/dL (40-59); LDL Cholesterol,Direct 128 mg/dL (50-130)
--- NOTE | 2020-11-29 07:52 | Progress Note ---
Subjective Date of service: 11/29/20 Principal diagnosis: (1) Major depressive disorder with psychotic features Subjective Comment: Per Psych Nurse: Last evening the patient spent in the activity room dozing in the recliner. She had no interaction with peers and little with staff. She barely shook her head no when asked about harming herself/others, and having avh. Her appetite was good. She was compliant with medications. She was assisted with ambulation since she has an unsteady gait. Overnight the patient slept briefly about an hour then was up and "busy" in her room. She was redirected to try to rest more but was resistant with that. Staff sat outside her door to be close for assistance when she got out of bed. She showered this morning. Will continue to monitor patient for safety. Psych Progress HPI Patient seen this AM, she reports that she is feeling slightly better but still endorsing hearing voices. When asked what the voices her, patient replied that "she doesnt know". Patient then continues to eat. SHe has been med compliant per report. Reason for continuing inpatient treatment: Persistent auditory hallucinations, will continue to observe, med adjusted yesterday. Review of Symptoms: Constitutional: Negative for weight loss ENT: Negative for stridor Respiratory: Negative for cough or hemoptysis All other systems reviewed and are negative MENTAL STATUS EXAMINATION General Appearance and Behavior: Age appropriate, good hygiene, wearing appropriate clothes, poor eye contact Cooperation: Participating/engaged, but Guarded Psychomotor Behavior: Psychomotor normal Mood: depressed Affect and affective range: tearful Thought Process: illogical Thought Content: hopelessness, hallucinations Speech: Normal rate, volume and rhythm Intellectual Functioning: Average Suicidal Ideation: Yes Homicidal Ideation: Denies HI Hallucinations: A/V Delusions: Paranoid Impulse Control: Impaired Insight and Judgment: Limited insight and judgment Memory: Normal Attention: Normal Orientation: Alert, oriented Treatment Plan Continue current medications Patient admitted for inpatient psychiatric evaluation, medication adjustment and close monitoring The patient's behavior, mood, sleep and appetite will be closely monitored. Patient enrolled in individual and group therapeutic sessions and encouraged to attend. Patient provided with a safe and structured environment. Patient's physical health needs will be addressed by the Hospitalist. Hospitalist Consulted Labs including CBC, CMP, Lipid profile and Hemoglobin A1C levels ordered for baseline reference Social Assessment will be completed and the Parts Sales Counterperson will work with patient and family to ensure a suitable and safe disposition Medication adjustment will be made as clinically indicated Usual Wellness Christian/Preservation: - Start Trazodone 50 mg po QHS & 50 mg po QHS PRN between 10 PM & 2 AM for insomnia - Start Melatonin 5 mg po QHS to promote circadian rhythm - Start [place]-3 for brain health, reduce impulsivity, and as adjunctive treatment for mood disorder, continue upon discharge given overall benefits. - Start B1 prophylaxis with 200 mg po for 5 days The patient agreed on the treatment plan, understood the risk, benefit, alternative treatment, potential consequence of no treatment, and gave informed consent. Initial Certification Inpatient psych services: I certify that the inpatient psychiatric services are required for treatment that could reasonably be expected to improve the patient's condition. Estimated days: 5 Post hospital care: primary care provider, psychiatric provider Assessment and Plan - Patient Problems (1) Major depressive disorder with psychotic features Current Visit: Yes Status: Acute Medications and Allergies Allergies Allergy/AdvReac Type Severity Reaction Status Date / Time aspirin Allergy Shortness Verified 11/23/20 15:06 of Breath meperidine HCl [From Demerol] Allergy Itching Verified 11/23/20 15:06 NSAIDS (Non-Steroidal Allergy Shortness Verified 11/23/20 15:06 Anti-Inflamma of Breath Cheese Allergy Shortness Uncoded 11/23/20 15:06 of Breath Home Medications Medication Instructions Recorded Confirmed Last Taken Type oxyCODONE /ACETAMINOPHEN [Percocet 1 tab PO Q6HR PRN #20 tablet 01/30/14 11/27/20 Unknown Rx 5/325 mg] ARIPiprazole 5 mg PO QDAY #1 tablet 11/25/20 11/27/20 Unknown Rx Mirtazapine [Remeron 15mg TAB] 7.5 mg PO QHS #1 tablet 11/25/20 11/27/20 Unknown Rx buPROPion [Wellbutrin] 150 mg PO BID #1 tablet 11/25/20 11/27/20 Unknown Rx ARIPiprazole [Abilify TAB] 10 mg PO QDAY tablet 11/26/20 11/27/20 Unknown Rx Active Meds: Active Medications Bupropion HCl (Bupropion 75 Mg Tab) 150 mg PO BID [facility] Last Admin: 11/28/20 21:19 Dose: 150 mg Documented by: Melatonin (Melatonin 5 Mg Tab) 5 mg PO QHS PRN PRN Reason: Sleep Last Admin: 11/28/20 00:04 Dose: 5 mg Documented by: Olanzapine (Olanzapine 5 Mg Tab) 7.5 mg PO QHS [facility] Last Admin: 11/28/20 21:18 Dose: 7.5 mg Documented by: Oxycodone/Acetaminophen (Oxycodone /Acetaminophen 5-325mg Tab) 1 tab PO Q6H PRN PRN Reason: PAIN (4-6) Trazodone HCl (Trazodone 50 Mg Tab) 50 mg PO QHS [facility] Last Admin: 11/28/20 21:19 Dose: 50 mg Documented by: Results - Results Labs/Vitals: Laboratory Last Values WBC 4.3 K/mm3 (4.5-11.0) L 11/28/20 22:51 RBC 3.78 M/mm3 (3.65-5.03) 11/28/20 22:51 Hgb 12.4 gm/dl (10.1-14.3) 11/28/20 22:51 Hct 37.4 % (30.3-42.9) 11/28/20 22:51 MCV 99 fl (79-97) H 11/28/20 22:51 MCH 33 pg (28-32) H 11/28/20 22:51 MCHC 33 % (30-34) 11/28/20 22:51 RDW 13.6 % (13.2-15.2) 11/28/20 22:51 Plt Count 198 K/mm3 (140-440) 11/28/20 22:51 Lymph % (Auto) 38.8 % (13.4-35.0) H 11/28/20 22:51 [place] % (Auto) 9.0 % (0.0-7.3) H 11/28/20 22:51 Eos % (Auto) 1.0 % (0.0-4.3) 11/28/20 22:51 Baso % (Auto) 1.0 % (0.0-1.8) 11/28/20 22:51 Lymph # (Auto) 1.7 K/mm3 (1.2-5.4) 11/28/20 22:51 [place] # (Auto) 0.4 K/mm3 (0.0-0.8) 11/28/20 22:51 Eos # (Auto) 0.0 K/mm3 (0.0-0.4) 11/28/20 22:51 Baso # (Auto) 0.0 K/mm3 (0.0-0.1) 11/28/20 22:51 Seg Neutrophils % 50.2 % (40.0-70.0) 11/28/20 22:51 Seg Neutrophils # 2.1 K/mm3 (1.8-7.7) 11/28/20 22:51 Sodium 142 mmol/L (137-145) 11/28/20 22:51 Potassium 4.2 mmol/L (3.6-5.0) D 11/28/20 22:51 Chloride 104.0 mmol/L (98-107) 11/28/20 22:51 Carbon Dioxide 30 mmol/L (22-30) 11/28/20 22:51 Anion Gap 12 mmol/L 11/28/20 22:51 BUN 19 mg/dL (7-17) H 11/28/20 22:51 Creatinine 0.9 mg/dL (0.6-1.2) 11/28/20 22:51 Estimated GFR > 60 ml/min 11/28/20 22:51 BUN/Creatinine Ratio 21 % 11/28/20 22:51 Glucose 92 mg/dL (65-100) 11/28/20 22:51 POC Glucose 84 mg/dL (70-105) 11/28/20 06:15 Hemoglobin A1c 5.4 % (4-6) 11/28/20 22:51 Calcium 9.1 mg/dL (8.4-10.2) 11/28/20 22:51 Magnesium 2.00 mg/dL (1.7-2.3) 11/28/20 22:51 Total Bilirubin 0.20 mg/dL (0.1-1.2) 11/28/20 22:51 AST 14 units/L (5-40) 11/28/20 22:51 ALT 9 units/L (7-56) 11/28/20 22:51 Alkaline Phosphatase 62 units/L (35-129) 11/28/20 22:51 Total Protein 6.0 g/dL (6.3-8.2) L 11/28/20 22:51 Albumin 3.7 g/dL (3.9-5) L 11/28/20 22:51 Albumin/Globulin Ratio 1.6 % 11/28/20 22:51 Triglycerides 90 mg/dL (2-149) 11/28/20 22:51 Cholesterol 216 mg/dL (50-199) H 11/28/20 22:51 LDL Cholesterol Direct 128 mg/dL (50-130) 11/28/20 22:51 HDL Cholesterol 87 mg/dL (40-59) H 11/28/20 22:51 Cholesterol/HDL Ratio 2.48 % 11/28/20 22:51 TSH 0.206 mlU/mL (0.270-4.200) L 11/28/20 22:51 Last Vital Signs Temp 98.7 F 11/28/20 19:26 Pulse 98 H 11/28/20 19:26 Resp 18 11/28/20 19:26 BP 135/73 11/28/20 19:26 Pulse Ox 99 11/28/20 19:26
[2020-11-29] MEDS: buPROPion 75 MG TAB PO SCH ×2 (10:30→15:40)
--- NOTE | 2020-11-29 19:38 | Progress Note ---
Assessment and Plan - Patient Problems (1) Vascular dementia with behavioral disturbance Current Visit: Yes Status: Acute Plan to address problem: Verbal prompting, verbal redirection, benzodiazepine therapy as clinically indicated. (2) Cerebral atherosclerosis Current Visit: Yes Status: Acute Plan to address problem: Risk factor reduction, supportive care. (3) HTN (hypertension) Current Visit: Yes Status: Acute Qualifiers: Hypertension type: essential hypertension Qualified Code(s): I10 - Essential (primary) hypertension Plan to address problem: Monitor BP q shift, History Interval history: 65 YO Female with Vascular Dementia with Behavioral Disturbance, Cerebral Atherosclerosis, OA, COPD, HTN, Pseudotumor Cerebrii admitted to [facility] for Psychiatric Stabilization. Pt seen and evaluated in the recreation room. No reported nursing events. Patient resting comfortably. Hospitalist Physical - Constitutional Vitals: Temp Pulse Resp BP Pulse Ox 98.8 F 111 H 16 128/72 99 11/29/20 08:37 11/29/20 08:37 11/29/20 08:37 11/29/20 08:37 11/29/20 08:37 General appearance: Present: no acute distress, well-nourished - EENT Eyes: Present: PERRL ENT: hearing intact - Neck Neck: Present: supple - Respiratory Respiratory: bilateral: CTA - Cardiovascular Rhythm: regular Heart Sounds: Present: S1 & S2 - Extremities Extremities: no ischemia Peripheral Pulses: within normal limits - Abdominal General gastrointestinal: soft, non-tender, non-distended - Integumentary Integumentary: Present: clear, dry - Psychiatric Psychiatric: cooperative - Neurologic Neurologic: CNII-XII intact Results - Labs CBC & Chem 7: 11/28/20 22:51 11/28/20 22:51 Labs: Laboratory Last Values WBC 4.3 K/mm3 (4.5-11.0) L 11/28/20 22:51 RBC 3.78 M/mm3 (3.65-5.03) 11/28/20 22:51 Hgb 12.4 gm/dl (10.1-14.3) 11/28/20 22:51 Hct 37.4 % (30.3-42.9) 11/28/20 22:51 MCV 99 fl (79-97) H 11/28/20 22:51 MCH 33 pg (28-32) H 11/28/20 22:51 MCHC 33 % (30-34) 11/28/20 22:51 RDW 13.6 % (13.2-15.2) 11/28/20 22:51 Plt Count 198 K/mm3 (140-440) 11/28/20 22:51 Lymph % (Auto) 38.8 % (13.4-35.0) H 11/28/20 22:51 [place] % (Auto) 9.0 % (0.0-7.3) H 11/28/20 22:51 Eos % (Auto) 1.0 % (0.0-4.3) 11/28/20 22:51 Baso % (Auto) 1.0 % (0.0-1.8) 11/28/20 22:51 Lymph # (Auto) 1.7 K/mm3 (1.2-5.4) 11/28/20 22:51 [place] # (Auto) 0.4 K/mm3 (0.0-0.8) 11/28/20 22:51 Eos # (Auto) 0.0 K/mm3 (0.0-0.4) 11/28/20 22:51 Baso # (Auto) 0.0 K/mm3 (0.0-0.1) 11/28/20 22:51 Seg Neutrophils % 50.2 % (40.0-70.0) 11/28/20 22:51 Seg Neutrophils # 2.1 K/mm3 (1.8-7.7) 11/28/20 22:51 Sodium 142 mmol/L (137-145) 11/28/20 22:51 Potassium 4.2 mmol/L (3.6-5.0) D 11/28/20 22:51 Chloride 104.0 mmol/L (98-107) 11/28/20 22:51 Carbon Dioxide 30 mmol/L (22-30) 11/28/20 22:51 Anion Gap 12 mmol/L 11/28/20 22:51 BUN 19 mg/dL (7-17) H 11/28/20 22:51 Creatinine 0.9 mg/dL (0.6-1.2) 11/28/20 22:51 Estimated GFR > 60 ml/min 11/28/20 22:51 BUN/Creatinine Ratio 21 % 11/28/20 22:51 Glucose 92 mg/dL (65-100) 11/28/20 22:51 POC Glucose 98 mg/dL (70-105) 11/29/20 07:57 Hemoglobin A1c 5.4 % (4-6) 11/28/20 22:51 Calcium 9.1 mg/dL (8.4-10.2) 11/28/20 22:51 Magnesium 2.00 mg/dL (1.7-2.3) 11/28/20 22:51 Total Bilirubin 0.20 mg/dL (0.1-1.2) 11/28/20 22:51 AST 14 units/L (5-40) 11/28/20 22:51 ALT 9 units/L (7-56) 11/28/20 22:51 Alkaline Phosphatase 62 units/L (35-129) 11/28/20 22:51 Total Protein 6.0 g/dL (6.3-8.2) L 11/28/20 22:51 Albumin 3.7 g/dL (3.9-5) L 11/28/20 22:51 Albumin/Globulin Ratio 1.6 % 11/28/20 22:51 Triglycerides 90 mg/dL (2-149) 11/28/20 22:51 Cholesterol 216 mg/dL (50-199) H 11/28/20 22:51 LDL Cholesterol Direct 128 mg/dL (50-130) 11/28/20 22:51 HDL Cholesterol 87 mg/dL (40-59) H 11/28/20 22:51 Cholesterol/HDL Ratio 2.48 % 11/28/20 22:51 TSH 0.206 mlU/mL (0.270-4.200) L 11/28/20 22:51 Myers/IV: Voiding Method Toilet Active Medications - Current Medications Current Medications: Generic Name Dose Route Start Last Admin Trade Name Freq PRN Reason Stop Dose Admin Bupropion HCl 150 mg 11/29/20 09:00 11/29/20 15:40 Bupropion 75 Mg Tab PO 150 mg 0900,1400 NARDA Administration Melatonin 5 mg 11/26/20 17:06 11/28/20 00:04 Melatonin 5 Mg Tab PO 5 mg QHS PRN Administration Sleep Olanzapine 7.5 mg 11/28/20 22:00 11/28/20 21:18 Olanzapine 5 Mg Tab PO 7.5 mg QHS NARDA Administration Oxycodone/Acetaminophen 1 tab 11/26/20 20:31 Oxycodone /Acetaminophen 5-325mg Tab PO Q6H PRN PAIN (4-6) Trazodone HCl 50 mg 11/26/20 22:00 11/28/20 21:19 Trazodone 50 Mg Tab PO 50 mg QHS NARDA Administration
[2020-11-29] MEDS: traZODone 50 MG TAB PO SCH (21:06)
[2020-11-29] MEDS: MELATONIN 5 MG TAB PO PRN (21:06)
--- NOTE | 2020-11-30 07:46 | Progress Note ---
Subjective Date of service: 11/30/20 Principal diagnosis: (1) Major depressive disorder with psychotic features Subjective Comment: Per Psych Nurse: pt spent last evening in activity sitting quietly in a shelli, withdrawn to self, on interaction with other peers, affect is flat, depressed mood, able to make needs known, denies si/hi, denies a/v/h, medication compliant, consumed 75% of bedtime snack, no complaints voiced, no distress noted, will continue to monitor for safety. Psych Progress HPI Patient in the room, and in bed, Patient reports she is feeling down, sad and depressed about her life and its hard to talk to me about it because she does not yet trust me. Patient says she is not hearing voices but is suicidal, says many things about her life just dont feel right. Patient then became tearful, covered herself up and started crying in room. Endorses SI Reason for continuing inpatient treatment: Persistent depressed mood, suicidality and internal stimulus responses, will continue to observe, med adjusted yesterday. Review of Symptoms: Constitutional: Negative for weight loss ENT: Negative for stridor Respiratory: Negative for cough or hemoptysis All other systems reviewed and are negative MENTAL STATUS EXAMINATION General Appearance and Behavior: Age appropriate, good hygiene, wearing appropriate clothes, poor eye contact Cooperation: Participating/engaged, but Guarded Psychomotor Behavior: Psychomotor normal Mood: depressed Affect and affective range: tearful Thought Process: circumstantial Thought Content: illofical Speech: Normal rate, volume and rhythm Intellectual Functioning: Average Suicidal Ideation: Suicidal Homicidal Ideation: Denies HI Hallucinations: A/V Delusions: Paranoid Impulse Control: Impaired Insight and Judgment: Limited insight and judgment Memory: Normal Attention: Normal Orientation: Alert, oriented Treatment Plan Continue current medications Patient admitted for inpatient psychiatric evaluation, medication adjustment and close monitoring The patient's behavior, mood, sleep and appetite will be closely monitored. Patient enrolled in individual and group therapeutic sessions and encouraged to attend. Patient provided with a safe and structured environment. Patient's physical health needs will be addressed by the Hospitalist. Hospitalist Consulted Labs including CBC, CMP, Lipid profile and Hemoglobin A1C levels ordered for baseline reference Social Assessment will be completed and the Para Educator will work with patient and family to ensure a suitable and safe disposition Medication adjustment will be made as clinically indicated Usual Wellness Quaker/Preservation: - Start Trazodone 50 mg po QHS & 50 mg po QHS PRN between 10 PM & 2 AM for insomnia - Start Melatonin 5 mg po QHS to promote circadian rhythm - Start [place]-3 for brain health, reduce impulsivity, and as adjunctive treatment for mood disorder, continue upon discharge given overall benefits. - Start B1 prophylaxis with 200 mg po for 5 days The patient agreed on the treatment plan, understood the risk, benefit, alternative treatment, potential consequence of no treatment, and gave informed consent. Initial Certification Inpatient psych services: I certify that the inpatient psychiatric services are required for treatment that could reasonably be expected to improve the patient's condition. Estimated days: 4 Post hospital care: primary care provider, psychiatric provider Assessment and Plan - Patient Problems (1) Major depressive disorder with psychotic features Current Visit: Yes Status: Acute Medications and Allergies Allergies Allergy/AdvReac Type Severity Reaction Status Date / Time aspirin Allergy Shortness Verified 11/23/20 15:06 of Breath meperidine HCl [From Demerol] Allergy Itching Verified 11/23/20 15:06 NSAIDS (Non-Steroidal Allergy Shortness Verified 11/23/20 15:06 Anti-Inflamma of Breath Cheese Allergy Shortness Uncoded 11/23/20 15:06 of Breath Home Medications Medication Instructions Recorded Confirmed Last Taken Type oxyCODONE /ACETAMINOPHEN [Percocet 1 tab PO Q6HR PRN #20 tablet 01/30/14 11/27/20 Unknown Rx 5/325 mg] ARIPiprazole 5 mg PO QDAY #1 tablet 11/25/20 11/27/20 Unknown Rx Mirtazapine [Remeron 15mg TAB] 7.5 mg PO QHS #1 tablet 11/25/20 11/27/20 Unknown Rx buPROPion [Wellbutrin] 150 mg PO BID #1 tablet 11/25/20 11/27/20 Unknown Rx ARIPiprazole [Abilify TAB] 10 mg PO QDAY tablet 11/26/20 11/27/20 Unknown Rx Levothyroxine [Synthroid] 112 mcg PO QDAY 11/29/20 11/29/20 Unknown History acetaZOLAMIDE [Diamox TAB] 250 mg PO BID 11/29/20 11/29/20 Unknown History atenoloL [Tenormin] 20 mg PO DAILY 11/29/20 11/29/20 Unknown History Active Meds: Active Medications Bupropion HCl (Bupropion 75 Mg Tab) 150 mg PO 0900,1400 [facility] Last Admin: 11/29/20 15:40 Dose: 150 mg Documented by: Melatonin (Melatonin 5 Mg Tab) 5 mg PO QHS PRN PRN Reason: Sleep Last Admin: 11/29/20 21:06 Dose: 5 mg Documented by: Olanzapine (Olanzapine 5 Mg Tab) 7.5 mg PO QHS [facility] Last Admin: 11/29/20 21:06 Dose: 7.5 mg Documented by: Oxycodone/Acetaminophen (Oxycodone /Acetaminophen 5-325mg Tab) 1 tab PO Q6H PRN PRN Reason: PAIN (4-6) Trazodone HCl (Trazodone 50 Mg Tab) 50 mg PO QHS [facility] Last Admin: 11/29/20 21:06 Dose: 50 mg Documented by: Results - Results Labs/Vitals: Laboratory Last Values WBC 4.3 K/mm3 (4.5-11.0) L 11/28/20 22:51 RBC 3.78 M/mm3 (3.65-5.03) 11/28/20 22:51 Hgb 12.4 gm/dl (10.1-14.3) 11/28/20 22:51 Hct 37.4 % (30.3-42.9) 11/28/20 22:51 MCV 99 fl (79-97) H 11/28/20 22:51 MCH 33 pg (28-32) H 11/28/20 22:51 MCHC 33 % (30-34) 11/28/20 22:51 RDW 13.6 % (13.2-15.2) 11/28/20 22:51 Plt Count 198 K/mm3 (140-440) 11/28/20 22:51 Lymph % (Auto) 38.8 % (13.4-35.0) H 11/28/20 22:51 [place] % (Auto) 9.0 % (0.0-7.3) H 11/28/20 22:51 Eos % (Auto) 1.0 % (0.0-4.3) 11/28/20 22:51 Baso % (Auto) 1.0 % (0.0-1.8) 11/28/20 22:51 Lymph # (Auto) 1.7 K/mm3 (1.2-5.4) 11/28/20 22:51 [place] # (Auto) 0.4 K/mm3 (0.0-0.8) 11/28/20 22:51 Eos # (Auto) 0.0 K/mm3 (0.0-0.4) 11/28/20 22:51 Baso # (Auto) 0.0 K/mm3 (0.0-0.1) 11/28/20 22:51 Seg Neutrophils % 50.2 % (40.0-70.0) 11/28/20 22:51 Seg Neutrophils # 2.1 K/mm3 (1.8-7.7) 11/28/20 22:51 Sodium 142 mmol/L (137-145) 11/28/20 22:51 Potassium 4.2 mmol/L (3.6-5.0) D 11/28/20 22:51 Chloride 104.0 mmol/L (98-107) 11/28/20 22:51 Carbon Dioxide 30 mmol/L (22-30) 11/28/20 22:51 Anion Gap 12 mmol/L 11/28/20 22:51 BUN 19 mg/dL (7-17) H 11/28/20 22:51 Creatinine 0.9 mg/dL (0.6-1.2) 11/28/20 22:51 Estimated GFR > 60 ml/min 11/28/20 22:51 BUN/Creatinine Ratio 21 % 11/28/20 22:51 Glucose 92 mg/dL (65-100) 11/28/20 22:51 POC Glucose 98 mg/dL (70-105) 11/29/20 07:57 Hemoglobin A1c 5.4 % (4-6) 11/28/20 22:51 Calcium 9.1 mg/dL (8.4-10.2) 11/28/20 22:51 Magnesium 2.00 mg/dL (1.7-2.3) 11/28/20 22:51 Total Bilirubin 0.20 mg/dL (0.1-1.2) 11/28/20 22:51 AST 14 units/L (5-40) 11/28/20 22:51 ALT 9 units/L (7-56) 11/28/20 22:51 Alkaline Phosphatase 62 units/L (35-129) 11/28/20 22:51 Total Protein 6.0 g/dL (6.3-8.2) L 11/28/20 22:51 Albumin 3.7 g/dL (3.9-5) L 11/28/20 22:51 Albumin/Globulin Ratio 1.6 % 11/28/20 22:51 Triglycerides 90 mg/dL (2-149) 11/28/20 22:51 Cholesterol 216 mg/dL (50-199) H 11/28/20 22:51 LDL Cholesterol Direct 128 mg/dL (50-130) 11/28/20 22:51 HDL Cholesterol 87 mg/dL (40-59) H 11/28/20 22:51 Cholesterol/HDL Ratio 2.48 % 11/28/20 22:51 TSH 0.206 mlU/mL (0.270-4.200) L 11/28/20 22:51 Last Vital Signs Temp 99.0 F 11/29/20 19:30 Pulse 110 H 11/29/20 19:30 Resp 17 11/29/20 19:30 BP 129/74 11/29/20 19:30 Pulse Ox 96 11/29/20 19:30
[2020-11-30] MEDS: buPROPion 75 MG TAB PO SCH ×2 (09:30→18:17)
[2020-11-30] MEDS: traZODone 50 MG TAB PO SCH (21:25)
[2020-11-30] MEDS: MELATONIN 5 MG TAB PO PRN (21:26)
--- NOTE | 2020-12-01 07:56 | Progress Note ---
Subjective Date of service: 12/01/20 Principal diagnosis: (1) Major depressive disorder with psychotic features Subjective Comment: Per Psych Nurse: Last evening the patient walked in the hallway to strengthen her gait. She presents as sad and depressed. She presents as anxious aeb "jumping" at sounds. She denies si/hi/vh but at times talks to herself. Her appetite is improving and she is medication compliant. At one point she came out of activity room and stated she heard a voice calling her name to come out and go somewhere. She was asking for clarification. Patient was reoriented to place. Overnight the patient rested quietly. She presents as sleeping 8 hours. Will continue to monitor patient for safety. Psych Progress HPI Today patient reports sleeping well and then said she had a couple of nightmares in her sleep, endorses hearing voices here and there. When asked what they were about, patient became tearful, states she doesnt want to , reports having fear about the next stage of treatment but shes unable to explain what that means or implies to her. Patient states she knows she would like to stay here and talk to someone. Patient endorses having kids of her own, but has nt had any communication or used the phone with family members since been here. Reason for continuing inpatient treatment: Persistent depressed mood, hallucinations and internal stimulus responses, Will add mood stabilizer to current medications and continue to observe. Review of Symptoms: Constitutional: Negative for weight loss ENT: Negative for stridor Respiratory: Negative for cough or hemoptysis All other systems reviewed and are negative MENTAL STATUS EXAMINATION General Appearance and Behavior: Age appropriate, good hygiene, wearing appropriate clothes, poor eye contact Cooperation: Participating/engaged, but Guarded Psychomotor Behavior: Psychomotor normal Mood: depressed Affect and affective range: tearful Thought Process: circumstantial Thought Content: illofical Speech: Normal rate, volume and rhythm Intellectual Functioning: Average Suicidal Ideation: Suicidal Homicidal Ideation: Denies HI Hallucinations: A/V Delusions: Paranoid Impulse Control: Impaired Insight and Judgment: Limited insight and judgment Memory: Normal Attention: Normal Orientation: Alert, oriented Assessment and Plan - Psychiatric problem (1) Major depressive disorder with psychotic features Current Visit: Yes Status: Acute F32.3 Treatment Plan Depakote 250 mg TID started Continue current medications Patient admitted for inpatient psychiatric evaluation, medication adjustment and close monitoring The patient's behavior, mood, sleep and appetite will be closely monitored. Patient enrolled in individual and group therapeutic sessions and encouraged to attend. Patient provided with a safe and structured environment. Patient's physical health needs will be addressed by the Hospitalist. Hospitalist Consulted Labs including CBC, CMP, Lipid profile and Hemoglobin A1C levels ordered for baseline reference Social Assessment will be completed and the Bead Forming Machine Operator will work with patient and family to ensure a suitable and safe disposition Medication adjustment will be made as clinically indicated Usual Wellness Presybeterian/Preservation: - Start Trazodone 50 mg po QHS & 50 mg po QHS PRN between 10 PM & 2 AM for insomnia - Start Melatonin 5 mg po QHS to promote circadian rhythm - Start [place]-3 for brain health, reduce impulsivity, and as adjunctive treatment for mood disorder, continue upon discharge given overall benefits. - Start B1 prophylaxis with 200 mg po for 5 days The patient agreed on the treatment plan, understood the risk, benefit, alternative treatment, potential consequence of no treatment, and gave informed consent. Initial Certification Inpatient psych services: I certify that the inpatient psychiatric services are required for treatment that could reasonably be expected to improve the patient's condition. Estimated days: 4 Post hospital care: primary care provider, psychiatric provider Assessment and Plan - Patient Problems (1) Major depressive disorder with psychotic features Current Visit: Yes Status: Acute Medications and Allergies Allergies Allergy/AdvReac Type Severity Reaction Status Date / Time aspirin Allergy Shortness Verified 11/23/20 15:06 of Breath meperidine HCl [From Demerol] Allergy Itching Verified 11/23/20 15:06 NSAIDS (Non-Steroidal Allergy Shortness Verified 11/23/20 15:06 Anti-Inflamma of Breath Cheese Allergy Shortness Uncoded 11/23/20 15:06 of Breath Home Medications Medication Instructions Recorded Confirmed Last Taken Type oxyCODONE /ACETAMINOPHEN [Percocet 1 tab PO Q6HR PRN #20 tablet 01/30/14 11/27/20 Unknown Rx 5/325 mg] ARIPiprazole 5 mg PO QDAY #1 tablet 11/25/20 11/27/20 Unknown Rx Mirtazapine [Remeron 15mg TAB] 7.5 mg PO QHS #1 tablet 11/25/20 11/27/20 Unknown Rx buPROPion [Wellbutrin] 150 mg PO BID #1 tablet 11/25/20 11/27/20 Unknown Rx ARIPiprazole [Abilify TAB] 10 mg PO QDAY tablet 11/26/20 11/27/20 Unknown Rx Levothyroxine [Synthroid] 112 mcg PO QDAY 11/29/20 11/29/20 Unknown History acetaZOLAMIDE [Diamox TAB] 250 mg PO BID 11/29/20 11/29/20 Unknown History atenoloL [Tenormin] 20 mg PO DAILY 11/29/20 11/29/20 Unknown History Active Meds: Active Medications Bupropion HCl (Bupropion 75 Mg Tab) 150 mg PO 0900,1400 [facility] Last Admin: 11/30/20 18:17 Dose: 150 mg Documented by: Melatonin (Melatonin 5 Mg Tab) 5 mg PO QHS PRN PRN Reason: Sleep Last Admin: 11/30/20 21:26 Dose: 5 mg Documented by: Olanzapine (Olanzapine 5 Mg Tab) 7.5 mg PO QHS [facility] Last Admin: 11/30/20 21:25 Dose: 7.5 mg Documented by: Oxycodone/Acetaminophen (Oxycodone /Acetaminophen 5-325mg Tab) 1 tab PO Q6H PRN PRN Reason: PAIN (4-6) Trazodone HCl (Trazodone 50 Mg Tab) 50 mg PO QHS [facility] Last Admin: 11/30/20 21:25 Dose: 50 mg Documented by: Results - Results Labs/Vitals: Laboratory Last Values WBC 4.3 K/mm3 (4.5-11.0) L 11/28/20 22:51 RBC 3.78 M/mm3 (3.65-5.03) 11/28/20 22:51 Hgb 12.4 gm/dl (10.1-14.3) 11/28/20 22:51 Hct 37.4 % (30.3-42.9) 11/28/20 22:51 MCV 99 fl (79-97) H 11/28/20 22:51 MCH 33 pg (28-32) H 11/28/20 22:51 MCHC 33 % (30-34) 11/28/20 22:51 RDW 13.6 % (13.2-15.2) 11/28/20 22:51 Plt Count 198 K/mm3 (140-440) 11/28/20 22:51 Lymph % (Auto) 38.8 % (13.4-35.0) H 11/28/20 22:51 [place] % (Auto) 9.0 % (0.0-7.3) H 11/28/20 22:51 Eos % (Auto) 1.0 % (0.0-4.3) 11/28/20 22:51 Baso % (Auto) 1.0 % (0.0-1.8) 11/28/20 22:51 Lymph # (Auto) 1.7 K/mm3 (1.2-5.4) 11/28/20 22:51 [place] # (Auto) 0.4 K/mm3 (0.0-0.8) 11/28/20 22:51 Eos # (Auto) 0.0 K/mm3 (0.0-0.4) 11/28/20 22:51 Baso # (Auto) 0.0 K/mm3 (0.0-0.1) 11/28/20 22:51 Seg Neutrophils % 50.2 % (40.0-70.0) 11/28/20 22:51 Seg Neutrophils # 2.1 K/mm3 (1.8-7.7) 11/28/20 22:51 Sodium 142 mmol/L (137-145) 11/28/20 22:51 Potassium 4.2 mmol/L (3.6-5.0) D 11/28/20 22:51 Chloride 104.0 mmol/L (98-107) 11/28/20 22:51 Carbon Dioxide 30 mmol/L (22-30) 11/28/20 22:51 Anion Gap 12 mmol/L 11/28/20 22:51 BUN 19 mg/dL (7-17) H 11/28/20 22:51 Creatinine 0.9 mg/dL (0.6-1.2) 11/28/20 22:51 Estimated GFR > 60 ml/min 11/28/20 22:51 BUN/Creatinine Ratio 21 % 11/28/20 22:51 Glucose 92 mg/dL (65-100) 11/28/20 22:51 POC Glucose 98 mg/dL (70-105) 11/29/20 07:57 Hemoglobin A1c 5.4 % (4-6) 11/28/20 22:51 Calcium 9.1 mg/dL (8.4-10.2) 11/28/20 22:51 Magnesium 2.00 mg/dL (1.7-2.3) 11/28/20 22:51 Total Bilirubin 0.20 mg/dL (0.1-1.2) 11/28/20 22:51 AST 14 units/L (5-40) 11/28/20 22:51 ALT 9 units/L (7-56) 11/28/20 22:51 Alkaline Phosphatase 62 units/L (35-129) 11/28/20 22:51 Total Protein 6.0 g/dL (6.3-8.2) L 11/28/20 22:51 Albumin 3.7 g/dL (3.9-5) L 11/28/20 22:51 Albumin/Globulin Ratio 1.6 % 11/28/20 22:51 Triglycerides 90 mg/dL (2-149) 11/28/20 22:51 Cholesterol 216 mg/dL (50-199) H 11/28/20 22:51 LDL Cholesterol Direct 128 mg/dL (50-130) 11/28/20 22:51 HDL Cholesterol 87 mg/dL (40-59) H 11/28/20 22:51 Cholesterol/HDL Ratio 2.48 % 11/28/20 22:51 TSH 0.206 mlU/mL (0.270-4.200) L 11/28/20 22:51 Last Vital Signs Temp 98.4 F 12/01/20 06:40 Pulse 106 H 12/01/20 06:40 Resp 18 12/01/20 06:40 BP 119/54 12/01/20 06:40 Pulse Ox 96 12/01/20 06:40
[2020-12-01] MEDS: buPROPion 75 MG TAB PO SCH ×2 (09:51→13:31)
[2020-12-01] MEDS: VALPROIC ACID 250 MG/5 ML ORAL LIQD PO SCH ×2 (13:32→21:10)
[2020-12-01] MEDS: traZODone 50 MG TAB PO SCH (21:10)
[2020-12-01] MEDS: MELATONIN 5 MG TAB PO PRN (21:10)
--- NOTE | 2020-12-02 07:45 | Progress Note ---
Subjective Date of service: 12/02/20 Principal diagnosis: (1) Major depressive disorder with psychotic features Subjective Comment: Per Psych Nurse: pt spent last evening in activity room sitting quietly to herself, no interaction with peers, pt is alert and orintedx4, calm and cooperative, flat affect, depressed mood, reported feeling better than yesterday, medication compliance, good appetite, percocet 5mg po given at 0000 for headache, pain at 7/10 with good effect, no distress noted, will continue to monitor for safety. 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 Reviewed CT head, was normal but informed patient needs to see neurologist outpt at this time, given new findings. Saw patient this AM, appears better, and she endorses feeling better. Patient states she wants to stay here long and be talking to people everyday. I informed patient, that wouldnt be possible as she only needs to continue her current medications and also follow up with a neurologist. She then states she prefers to talk to people and doesnt want to take meds. Informed patient she can be seeing a counsellor oupt as another option. Reason for continuing inpatient treatment: Persistent depressed mood, hallucinations and internal stimulus responses, Will add mood stabilizer to current medications and continue to observe. Review of Symptoms: Constitutional: Negative for weight loss ENT: Negative for stridor Respiratory: Negative for cough or hemoptysis All other systems reviewed and are negative MENTAL STATUS EXAMINATION General Appearance and Behavior: Age appropriate, good hygiene, wearing appropriate clothes, poor eye contact Cooperation: Participating/engaged, but Guarded Psychomotor Behavior: Psychomotor normal Mood: "i feel better" Affect and affective range: tearful Thought Process: Logical Thought Content: within reality Speech: Normal rate, volume and rhythm Intellectual Functioning: Average Suicidal Ideation: denies Homicidal Ideation: Denies HI Hallucinations: none Delusions: none Impulse Control: Impaired Insight and Judgment: Limited insight and judgment Memory: Normal Attention: Normal Orientation: Alert, oriented Assessment and Plan - Psychiatric problem (1) Major depressive disorder with psychotic features Current Visit: Yes Status: Acute F32.3 Treatment Plan Plan to discharge today. Continue current medications Patient admitted for inpatient psychiatric evaluation, medication adjustment and close monitoring The patient's behavior, mood, sleep and appetite will be closely monitored. Patient enrolled in individual and group therapeutic sessions and encouraged to attend. Patient provided with a safe and structured environment. Patient's physical health needs will be addressed by the Hospitalist. Hospitalist Consulted Labs including CBC, CMP, Lipid profile and Hemoglobin A1C levels ordered for baseline reference Social Assessment will be completed and the Office Systems Technology Instructor will work with patient and family to ensure a suitable and safe disposition Medication adjustment will be made as clinically indicated Usual Wellness Presybeterian/Preservation: - Start Trazodone 50 mg po QHS & 50 mg po QHS PRN between 10 PM & 2 AM for insomnia - Start Melatonin 5 mg po QHS to promote circadian rhythm - Start [place]-3 for brain health, reduce impulsivity, and as adjunctive treatment for mood disorder, continue upon discharge given overall benefits. - Start B1 prophylaxis with 200 mg po for 5 days The patient agreed on the treatment plan, understood the risk, benefit, alternative treatment, potential consequence of no treatment, and gave informed consent. Initial Certification Inpatient psych services: I certify that the inpatient psychiatric services are required for treatment that could reasonably be expected to improve the patient's condition. Estimated days: 1 Post hospital care: primary care provider, psychiatric provider Assessment and Plan - Patient Problems (1) Major depressive disorder with psychotic features Current Visit: Yes Status: Acute Medications and Allergies Allergies Allergy/AdvReac Type Severity Reaction Status Date / Time aspirin Allergy Shortness Verified 11/23/20 15:06 of Breath meperidine HCl [From Demerol] Allergy Itching Verified 11/23/20 15:06 NSAIDS (Non-Steroidal Allergy Shortness Verified 11/23/20 15:06 Anti-Inflamma of Breath Cheese Allergy Shortness Uncoded 11/23/20 15:06 of Breath Home Medications Medication Instructions Recorded Confirmed Last Taken Type oxyCODONE /ACETAMINOPHEN [Percocet 1 tab PO Q6HR PRN #20 tablet 01/30/14 11/27/20 Unknown Rx 5/325 mg] ARIPiprazole 5 mg PO QDAY #1 tablet 11/25/20 11/27/20 Unknown Rx Mirtazapine [Remeron 15mg TAB] 7.5 mg PO QHS #1 tablet 11/25/20 11/27/20 Unknown Rx buPROPion [Wellbutrin] 150 mg PO BID #1 tablet 11/25/20 11/27/20 Unknown Rx ARIPiprazole [Abilify TAB] 10 mg PO QDAY tablet 11/26/20 11/27/20 Unknown Rx Levothyroxine [Synthroid] 112 mcg PO QDAY 11/29/20 11/29/20 Unknown History acetaZOLAMIDE [Diamox TAB] 250 mg PO BID 11/29/20 11/29/20 Unknown History atenoloL [Tenormin] 20 mg PO DAILY 11/29/20 11/29/20 Unknown History Active Meds: Active Medications Bupropion HCl (Bupropion 75 Mg Tab) 150 mg PO 0900,1400 [facility] Last Admin: 12/01/20 13:31 Dose: 150 mg Documented by: Melatonin (Melatonin 5 Mg Tab) 5 mg PO QHS PRN PRN Reason: Sleep Last Admin: 12/01/20 21:10 Dose: 5 mg Documented by: Olanzapine (Olanzapine 5 Mg Tab) 7.5 mg PO QHS [facility] Last Admin: 12/01/20 21:10 Dose: 7.5 mg Documented by: Oxycodone/Acetaminophen (Oxycodone /Acetaminophen 5-325mg Tab) 1 tab PO Q6H PRN PRN Reason: PAIN (4-6) Last Admin: 12/02/20 00:00 Dose: 1 tab Documented by: Trazodone HCl (Trazodone 50 Mg Tab) 50 mg PO QHS [facility] Last Admin: 12/01/20 21:10 Dose: 50 mg Documented by: Valproic Acid (Valproic Acid 250 Mg/5 Ml Oral Liqd) 250 mg PO TID [facility] Last Admin: 12/01/20 21:10 Dose: 250 mg Documented by: Results - Results Labs/Vitals: Laboratory Last Values WBC 4.3 K/mm3 (4.5-11.0) L 11/28/20 22:51 RBC 3.78 M/mm3 (3.65-5.03) 11/28/20 22:51 Hgb 12.4 gm/dl (10.1-14.3) 11/28/20 22:51 Hct 37.4 % (30.3-42.9) 11/28/20 22:51 MCV 99 fl (79-97) H 11/28/20 22:51 MCH 33 pg (28-32) H 11/28/20 22:51 MCHC 33 % (30-34) 11/28/20 22:51 RDW 13.6 % (13.2-15.2) 11/28/20 22:51 Plt Count 198 K/mm3 (140-440) 11/28/20 22:51 Lymph % (Auto) 38.8 % (13.4-35.0) H 11/28/20 22:51 [place] % (Auto) 9.0 % (0.0-7.3) H 11/28/20 22:51 Eos % (Auto) 1.0 % (0.0-4.3) 11/28/20 22:51 Baso % (Auto) 1.0 % (0.0-1.8) 11/28/20 22:51 Lymph # (Auto) 1.7 K/mm3 (1.2-5.4) 11/28/20 22:51 [place] # (Auto) 0.4 K/mm3 (0.0-0.8) 11/28/20 22:51 Eos # (Auto) 0.0 K/mm3 (0.0-0.4) 11/28/20 22:51 Baso # (Auto) 0.0 K/mm3 (0.0-0.1) 11/28/20 22:51 Seg Neutrophils % 50.2 % (40.0-70.0) 11/28/20 22:51 Seg Neutrophils # 2.1 K/mm3 (1.8-7.7) 11/28/20 22:51 Sodium 142 mmol/L (137-145) 11/28/20 22:51 Potassium 4.2 mmol/L (3.6-5.0) D 11/28/20 22:51 Chloride 104.0 mmol/L (98-107) 11/28/20 22:51 Carbon Dioxide 30 mmol/L (22-30) 11/28/20 22:51 Anion Gap 12 mmol/L 11/28/20 22:51 BUN 19 mg/dL (7-17) H 11/28/20 22:51 Creatinine 0.9 mg/dL (0.6-1.2) 11/28/20 22:51 Estimated GFR > 60 ml/min 11/28/20 22:51 BUN/Creatinine Ratio 21 % 11/28/20 22:51 Glucose 92 mg/dL (65-100) 11/28/20 22:51 POC Glucose 98 mg/dL (70-105) 11/29/20 07:57 Hemoglobin A1c 5.4 % (4-6) 11/28/20 22:51 Calcium 9.1 mg/dL (8.4-10.2) 11/28/20 22:51 Magnesium 2.00 mg/dL (1.7-2.3) 11/28/20 22:51 Total Bilirubin 0.20 mg/dL (0.1-1.2) 11/28/20 22:51 AST 14 units/L (5-40) 11/28/20 22:51 ALT 9 units/L (7-56) 11/28/20 22:51 Alkaline Phosphatase 62 units/L (35-129) 11/28/20 22:51 Total Protein 6.0 g/dL (6.3-8.2) L 11/28/20 22:51 Albumin 3.7 g/dL (3.9-5) L 11/28/20 22:51 Albumin/Globulin Ratio 1.6 % 11/28/20 22:51 Triglycerides 90 mg/dL (2-149) 11/28/20 22:51 Cholesterol 216 mg/dL (50-199) H 11/28/20 22:51 LDL Cholesterol Direct 128 mg/dL (50-130) 11/28/20 22:51 HDL Cholesterol 87 mg/dL (40-59) H 11/28/20 22:51 Cholesterol/HDL Ratio 2.48 % 11/28/20 22:51 TSH 0.206 mlU/mL (0.270-4.200) L 11/28/20 22:51 Last Vital Signs Temp 98.8 F 12/01/20 20:16 Pulse 97 H 12/01/20 20:16 Resp 18 12/02/20 00:00 BP 127/69 12/01/20 20:16 Pulse Ox 98 12/01/20 20:16
[2020-12-02 09:00] VITALS: BP 127/51
[2020-12-02] MEDS ORDERED: VALPROIC ACID 250 MG/5 ML ORAL LIQD PO SCH (09:00)
[2020-12-02] MEDS: buPROPion 75 MG TAB PO SCH (09:04)
[2020-12-02] MEDS: VALPROIC ACID 250 MG/5 ML ORAL LIQD PO SCH (09:23)
--- NOTE | 2020-12-02 13:02 | Discharge Summary ---
Providers - Providers Date of Admission: 11/26/20 18:26 Date of discharge: 12/02/20 Attending physician: GIANNA COOK MD 11/26/20 17:02 Consult to Physician [CONS] Routine Comment: Consulting Provider: CARLIE SCHMIDT Physician Instructions: Reason For Exam: Med mangt Primary care physician: BETTIE WOOD MD Hospitalization Reason for admission: Psychopathological interval Condition: Good Hospital course: The patient was provided inpatient psychiatric treatment with safe and supportive environment, group/individual therapy, psychiatric medication, medication adjustment, adverse effect monitor, medical evaluation, medical treatment, social service assessment, social support meeting, placement assessment and psycho-education. The patients mood, cognition, behavior, motivation, compliance to treatment and appreciation on family/social support are improved and stabilized. At the time of discharge, the patient had no suicidal ideas, no homicidal ideas, no aggressive thoughts, no endangering behavior and no debilitating adverse effects. The patient agreed on the treatment plan, understood the risk, benefit, alternative treatment, potential consequence of no treatment, and gave informed consent. Over 35 minutes spent for discharge process, education and behavioral counselling. Disposition: DC-01 TO HOME OR SELFCARE Allergies/Adverse Reactions: Allergies aspirin Allergy (Verified 11/23/20 15:06) Shortness of Breath meperidine HCl [From Demerol] Allergy (Verified 11/23/20 15:06) Itching NSAIDS (Non-Steroidal Anti-Inflamma Allergy (Verified 11/23/20 15:06) Shortness of Breath Cheese Allergy (Uncoded 11/23/20 15:06) Shortness of Breath Vital Signs: Last Vital Signs Temp 98.5 F 12/02/20 08:45 Pulse 103 H 12/02/20 08:45 Resp 16 12/02/20 08:45 BP 127/51 12/02/20 08:45 Pulse Ox 100 12/02/20 08:45 Last Lab: Laboratory Last Values WBC 4.3 K/mm3 (4.5-11.0) L 11/28/20 22:51 RBC 3.78 M/mm3 (3.65-5.03) 11/28/20 22:51 Hgb 12.4 gm/dl (10.1-14.3) 11/28/20 22:51 Hct 37.4 % (30.3-42.9) 11/28/20 22:51 MCV 99 fl (79-97) H 11/28/20 22:51 MCH 33 pg (28-32) H 11/28/20 22:51 MCHC 33 % (30-34) 11/28/20 22:51 RDW 13.6 % (13.2-15.2) 11/28/20 22:51 Plt Count 198 K/mm3 (140-440) 11/28/20 22:51 Lymph % (Auto) 38.8 % (13.4-35.0) H 11/28/20 22:51 [place] % (Auto) 9.0 % (0.0-7.3) H 11/28/20 22:51 Eos % (Auto) 1.0 % (0.0-4.3) 11/28/20 22:51 Baso % (Auto) 1.0 % (0.0-1.8) 11/28/20 22:51 Lymph # (Auto) 1.7 K/mm3 (1.2-5.4) 11/28/20 22:51 [place] # (Auto) 0.4 K/mm3 (0.0-0.8) 11/28/20 22:51 Eos # (Auto) 0.0 K/mm3 (0.0-0.4) 11/28/20 22:51 Baso # (Auto) 0.0 K/mm3 (0.0-0.1) 11/28/20 22:51 Seg Neutrophils % 50.2 % (40.0-70.0) 11/28/20 22:51 Seg Neutrophils # 2.1 K/mm3 (1.8-7.7) 11/28/20 22:51 Sodium 142 mmol/L (137-145) 11/28/20 22:51 Potassium 4.2 mmol/L (3.6-5.0) D 11/28/20 22:51 Chloride 104.0 mmol/L (98-107) 11/28/20 22:51 Carbon Dioxide 30 mmol/L (22-30) 11/28/20 22:51 Anion Gap 12 mmol/L 11/28/20 22:51 BUN 19 mg/dL (7-17) H 11/28/20 22:51 Creatinine 0.9 mg/dL (0.6-1.2) 11/28/20 22:51 Estimated GFR > 60 ml/min 11/28/20 22:51 BUN/Creatinine Ratio 21 % 11/28/20 22:51 Glucose 92 mg/dL (65-100) 11/28/20 22:51 POC Glucose 98 mg/dL (70-105) 11/29/20 07:57 Hemoglobin A1c 5.4 % (4-6) 11/28/20 22:51 Calcium 9.1 mg/dL (8.4-10.2) 11/28/20 22:51 Magnesium 2.00 mg/dL (1.7-2.3) 11/28/20 22:51 Total Bilirubin 0.20 mg/dL (0.1-1.2) 11/28/20 22:51 AST 14 units/L (5-40) 11/28/20 22:51 ALT 9 units/L (7-56) 11/28/20 22:51 Alkaline Phosphatase 62 units/L (35-129) 11/28/20 22:51 Total Protein 6.0 g/dL (6.3-8.2) L 11/28/20 22:51 Albumin 3.7 g/dL (3.9-5) L 11/28/20 22:51 Albumin/Globulin Ratio 1.6 % 11/28/20 22:51 Triglycerides 90 mg/dL (2-149) 11/28/20 22:51 Cholesterol 216 mg/dL (50-199) H 11/28/20 22:51 LDL Cholesterol Direct 128 mg/dL (50-130) 11/28/20 22:51 HDL Cholesterol 87 mg/dL (40-59) H 11/28/20 22:51 Cholesterol/HDL Ratio 2.48 % 11/28/20 22:51 TSH 0.206 mlU/mL (0.270-4.200) L 11/28/20 22:51 - Discharge Diagnoses (1) Major depressive disorder with psychotic features Status: Acute Core Measure Documentation - Palliative Care Palliative Care/ Comfort Measures: Not Applicable - Core Measures Any of the following diagnoses?: none Exam - Constitutional Vitals: Temp Pulse Resp BP Pulse Ox 98.5 F 103 H 16 127/51 100 12/02/20 08:45 12/02/20 08:45 12/02/20 08:45 12/02/20 08:45 12/02/20 08:45 General appearance: Present: no acute distress - EENT Eyes: Present: PERRL, EOM intact ENT: hearing intact, clear oral mucosa - Neck Neck: Present: supple, normal ROM - Respiratory Respiratory effort: normal - Abdominal Female genitourinary: Present: deferred Plan Care Plan Goals: Recommend outpatient neurological follow-up. Goals: Maintain good and stable mental health. Plan of Treatment: The patient should be compliant with medications, not to use drugs and not to drink alcohol. The patient understands that if suicidal ideas, homicidal ideas, or any endangering thoughts arise, the patient should immediately seek for emergent assistance including but not limited to crisis hot line and emergency room. Follow up with outpatient Psychiatrist and PCP within 7 - 14 days of discharge. Follow up with: BETTIE WOOD MD [Primary Care Provider] - 7 Days Prescriptions: traZODone [Desyrel] 50 mg PO QHS #30 tablet OLANzapine [ZyPREXA] 5 mg PO QHS #30 tablet buPROPion [Wellbutrin] 150 mg PO 0900,1400 #60 tablet
== END 2020-12-02 11:45 | disposition home or self-care (01) | DRG 885 ==
LOC: 3A 16:18 → UNDOADMIN 16:18 → 5A 18:26
PROVIDERS: ADMIT Psychiatry & Neurology Psychiatry; ATTEND Psychiatry & Neurology Psychiatry
DX: F32.3 Major depressive disorder, single episode, severe with psychotic features (principal); F01.51 Vascular dementia, unspecified severity, with behavioral disturbance; I67.2 Cerebral atherosclerosis; M19.90 Unspecified osteoarthritis, unspecified site; J44.9 Chronic obstructive pulmonary disease, unspecified; I10 Essential (primary) hypertension; E11.9 Type 2 diabetes mellitus without complications; Z90.49 Acquired absence of other specified parts of digestive tract; Z82.49 Family history of ischemic heart disease and other diseases of the circulatory system; Z98.84 Bariatric surgery status; Z88.6 Allergy status to analgesic agent; Z79.899 Other long term (current) drug therapy
CPT/HCPCS: 36415; 70450; 72131; 80048; 80053; 80061; 80307; 80320; 81001; 82140; 82550; 82962; 83036; 83735; 84443; 84484; 85025; 85610; 93005; 95819; 96361; 96372; 96374; G0378; G0480; J1644; J2270; J7030; U0003